=== PATIENT | female | born 1940 | race Caucasian/White ===

== ENCOUNTER → 2016-09-14 | Outpatient (CLI) | payer MEDICARE, OTHER | END | disposition home or self-care (01) | LOC: GMAB 19:45 | PROVIDERS: ATTEND Family Medicine | DX: D64.9 Anemia, unspecified (principal); E53.8 Deficiency of other specified B group vitamins ==

== ENCOUNTER → 2016-11-03 | Outpatient (CLI) | payer MEDICARE, OTHER ==
--- NOTE | 2016-11-03 14:55 | MAM ---
History: Well woman exam. Date of exam: 11/03/2016 Services provided: Bilateral full field digital screening mammography. CAD, the images were reviewed with R2 computer aided detection. FINDINGS: Glandular tissue is scattered glandular contour. Comparison with 2014 study. Stable glandular distribution. No dominant mass or architectural distortion. Benign vascular calcifications. IMPRESSION: Benign exam Recommendation: Routine annual mammography BIRAD CATEGORY: 2 BENIGN Electronically signed by: Radha Nunn MD 11/03/2016 2:54 PM CDT
== END ==
LOC: MAMMO 10:59
PROVIDERS: ATTEND Family Medicine
DX: Z12.31 Encounter for screening mammogram for malignant neoplasm of breast (principal)

== ENCOUNTER → 2017-06-12 | Outpatient (CLI) | payer MEDICARE, OTHER ==
--- NOTE | 2017-06-13 15:34 | MRI ---
EXAM DESCRIPTION: Lumbar Spine w/o Contrast CLINICAL HISTORY: 76 years, Female, POSTLAMINECTOMY SYNDROME COMPARISON: CT January 08, 2015 TECHNIQUE: Multiplanar multi sequence images of the lumbar spine were obtained without gadolinium contrast. FINDINGS: Metallic artifact limits the posterior elements in the lower lumbar spine. Metallic artifact also limits evaluation of the lumbosacral junction, with pedicle screws likely in the L5 and S1 bodies better seen on recent CT. An interbody spacer device is present at what will be labeled the L5-S1 level for the purposes of this exam. The designated T12-L1 disc is present on axial T2 series 501 image 23. There is grade 1 or grade 2 anterolisthesis at L4-5, stable from the previous CT. Vertebral body height and alignment are otherwise well-maintained. No bone marrow edema. The conus lies posterior to the L1-2 disc,. The cauda equina is only partially visualized, and there is some clumping of the nerve roots in the posterior thecal sac which can be seen with arachnoiditis. the paraspinal and visualized retroperitoneal soft tissues are unremarkable. At T12-L1, there is no disc bulging or facet joint degeneration. At L1-2, there is disc desiccation without significant disc bulging. Mild bilateral facet joint degeneration is noted, but there is no central canal or neuroforaminal stenosis. At L2-3, there is disc desiccation without significant disc bulging or facet joint degeneration. At L3-4, there is disc desiccation with mild concentric disc bulging. The facet joints are not well visualized due to metallic artifact, but there is no central canal or neuroforaminal stenosis. At L4-5, there is grade 1 or grade 2 anterolisthesis as detailed above. Evaluation of the intervertebral disc and facet joints is significantly limited by metallic artifact. At L5-S1, postoperative changes are noted including a probable interbody spacer device. Metallic artifact limits visualization of the disc space, facet joints and central canal at this level. IMPRESSION: Postoperative changes at the lumbosacral junction with metallic artifact limiting evaluation of the lower lumbar spine including the lumbosacral junction. Please see body of report for detailed description of nomenclature used in this exam. Mild facet joint degeneration at L1-2, but no significant disc bulging, central canal or neuroforaminal stenosis at any visualized level. Limited visualization of the central canal and neural foramina at L4-5 and L5-S1. Clumping of the nerve roots in the posterior aspect of the thecal sac posterior to the L2 and L3 bodies which suggests the possibility of arachnoiditis. Electronically signed by: Aamir Ceballos MD 06/13/2017 3:33 PM [facility]
== END ==
LOC: MRI 13:00
PROVIDERS: ATTEND Anesthesiology Pain Medicine
DX: M96.1 Postlaminectomy syndrome, not elsewhere classified (principal); Z98.890 Other specified postprocedural states

== ENCOUNTER → 2017-07-26 | Outpatient (CLI) | payer MEDICARE, OTHER | END | disposition home or self-care (01) | LOC: GMAB 14:16 | PROVIDERS: ATTEND Family Medicine | DX: I10 Essential (primary) hypertension (principal) ==

== ENCOUNTER → 2017-08-04 | Outpatient (CLI) | payer MEDICARE, OTHER ==
--- NOTE | 2017-08-07 08:08 | RAD ---
EXAM DESCRIPTION: Foot,Left 3 Views CLINICAL HISTORY: 76 yearsFemale, FOOT PAIN COMPARISON: None. IMPRESSION: The bones are demineralized, which somewhat limits evaluation. There is no definite evidence for acute fracture or destructive osseous lesion. A moderate hallux valgus deformity of the first digit is demonstrated, with associated moderate changes of osteoarthritis in the first MTP joint. Moderate changes of osteoarthritis are also demonstrated throughout the first through fifth MTP joints. Scattered vascular calcifications. Small plantar calcaneal enthesophytes. Electronically signed by: Denzel Aldridge MD 08/07/2017 8:06 AM [facility]
== END | disposition home or self-care (01) ==
LOC: RAD 08:44
PROVIDERS: ATTEND Orthopaedic Surgery
DX: M79.672 Pain in left foot (principal)

== ENCOUNTER → 2017-10-04 | Outpatient (CLI) | payer MEDICARE, OTHER | LOC: GMAB 11:33 | PROVIDERS: ATTEND Family Medicine | DX: R06.02 Shortness of breath (principal) ==

== ENCOUNTER → 2017-10-12 | Outpatient (CLI) | payer MEDICARE, OTHER | LOC: RESP 10:51 | PROVIDERS: ATTEND Family Medicine | DX: R55 Syncope and collapse (principal) ==

== ENCOUNTER → 2017-10-26 | Outpatient (CLI) | payer MEDICARE, OTHER ==
--- NOTE | 2017-10-26 16:33 | MRI ---
EXAM DESCRIPTION: Thoracic Spine w/o Contrast CLINICAL HISTORY: SPONDYLOSIS, mid back pain COMPARISON: None Available. TECHNIQUE: MRI thoracic is performed according to our usual protocol. FINDINGS: Sagittal T2 images: Decreased disc signal intensity is consistent with disc desiccation and degeneration. Normal vertebral body height with no focal compression or bony destructive lesion. Normal T2 appearance of the thoracic spinal cord. No significant posterior discal abnormality or spinal stenosis. There are mild posterior annular bulges at multiple thoracic levels without cord contouring. Most severe disc degeneration is seen at T2-3 level. T9 vertebral hemangiomas are incidentally noted tip of the conus is behind L1. Advanced degenerative disc disease is seen in the cervical spine. Correlate with C-spine MRI findings if indicated. Sagittal T1 images: Benign marrow signal characteristics are noted. Normal T1 appearance of the thoracic spinal cord. Normal descending thoracic aorta with no prevertebral mass. Sagittal STIR images: No high signal intensity within the vertebral bodies or posterior elements to suggest marrow edema. No paraspinous fluid collection or cystic lesion. Axial images were obtained to evaluate the disc levels. Normal or minimally bulging posterior disc margins with no spinal stenosis or neural foraminal narrowing. No acute appearing disc herniation. Axial images through the cord appear normal. No posterior mediastinal mass. No paraspinous mass or abnormality of the paraspinous musculature. Posterior medial ribs appear intact. IMPRESSION: MRI of the thoracic spine is negative for acute vertebral body compression or spinal stenosis. Multilevel thoracic disc degeneration with mild posterior annular bulges but no acute appearing disc herniation. Severe degenerative disc disease of the cervical spine. See above. Electronically signed by: Jose Mendez MD 10/26/2017 4:32 PM CDT
== END ==
LOC: MRI 11:00
PROVIDERS: ATTEND Anesthesiology Pain Medicine
DX: M47.894 Other spondylosis, thoracic region (principal); M50.30 Other cervical disc degeneration, unspecified cervical region

== ENCOUNTER → 2017-11-29 | Outpatient (CLI) | payer MEDICARE, OTHER ==
--- NOTE | 2017-11-29 17:15 | MAM ---
EXAM DESCRIPTION: 3D Screening BILATERAL : Digital Mammography. CLINICAL HISTORY: 77 years Female SCREENING . No complaints. Remote family history of breast cancer. Number. Postmenopausal. Has taken HRT 5 or more years ago. Prior right breast biopsy. COMPARISON: 2-D digital screening bilateral study 11/03/2016. Report from prior examination also reviewed. TECHNIQUE: Bilateral CC and MLO projection full-field images, 3-D tomosynthesis digital mammographic technique. CAD not utilized. FINDINGS: The breast parenchymal density pattern is: Scattered areas of fibroglandular density. No skin thickening or nipple retraction bilateral vascular calcifications. Bilateral solitary microcalcifications. No focal, stellate mass or density, focal asymmetry , and no suspicious microcalcifications bilaterally. Stable mammograms compared to prior study, taking into account differences in mammographic technique IMPRESSION: BI-RADS CATEGORY: 2 - BENIGN FINDINGS. FOLLOW UP: Routine digital bilateral screening, one year interval from November 2017. Written communication explaining the IMPRESSION and follow-up, will be mailed to the patient and referring health care provider. According to the [employer], yearly mammograms are recommended starting at age 40 and continuing as long as a woman is in good health. Any breast change noted on a breast self-exam should be reported promptly to the patient's healthcare provider. Breast MRI is recommended for women with an approximately 20-25% or greater lifetime risk of breast cancer, including women with a strong family history of breast or ovarian cancer and women who have been treated for Hodgkin's disease. A negative mammographic report should not delay tissue diagnosis in patients with significant clinical history or physical findings. Extremely dense breast tissue limits the sensitivity of digital mammography. Electronically signed by: Nilo Ndiaye MD 11/29/2017 5:14 PM CDT
== END ==
LOC: MAMMO 13:30
PROVIDERS: ATTEND Family Medicine
DX: Z12.31 Encounter for screening mammogram for malignant neoplasm of breast (principal)

== ENCOUNTER → 2017-12-05 | Outpatient (CLI) | payer MEDICARE, OTHER | LOC: SL 20:00 | PROVIDERS: ATTEND Internal Medicine Pulmonary Disease | DX: G47.10 Hypersomnia, unspecified (principal); R06.83 Snoring ==

== ENCOUNTER → 2018-01-05 | Outpatient (CLI) | payer MEDICARE, OTHER ==
--- NOTE | 2018-01-05 12:52 | CT ---
EXAM DESCRIPTION: Abdoment/Pelvis w/o Contrast CLINICAL HISTORY: 77 years, Female, GENERALIZED ABD PAIN COMPARISON: None. TECHNIQUE: CT of the abdomen and pelvis is performed according to our non contrast protocol. FINDINGS: The lung bases are clear. Liver, spleen, and pancreas are unremarkable. Clips from previous cholecystectomy. The kidneys demonstrate diffuse cortical atrophy. No stone. No hydronephrosis or mass. Low midline ventral hernia containing fat is observed. There is no lymphadenopathy, inflammation, or free fluid observed. IMPRESSION: 1. Cortical atrophy of the kidneys 2. Low midline ventral hernia This exam was performed according to our departmental dose-optimization program, which includes automated exposure control, adjustment of the mA and/or kV according to patient size and/or use of iterative reconstruction technique. Electronically signed by: Phillip Welhs MD 01/05/2018 12:50 PM CDT
== END ==
LOC: GMAH 11:54
PROVIDERS: ATTEND Physician Assistant
DX: R10.84 Generalized abdominal pain (principal); K43.9 Ventral hernia without obstruction or gangrene

== ENCOUNTER → 2018-07-30 | Outpatient (CLI) | payer MEDICARE, OTHER | LOC: GMAE 10:55 | PROVIDERS: ATTEND Family Medicine | DX: R06.02 Shortness of breath (principal); I10 Essential (primary) hypertension ==

== ENCOUNTER → 2018-11-28 | Outpatient (CLI) | payer MEDICARE, OTHER | LOC: GMAE 14:30 | PROVIDERS: ATTEND Family Medicine | DX: M25.531 Pain in right wrist (principal) ==

== ENCOUNTER → 2019-02-13 | Outpatient (CLI) | payer MEDICARE, OTHER | LOC: GMAE 11:31 | PROVIDERS: ATTEND Family Medicine | DX: D64.9 Anemia, unspecified (principal); E53.8 Deficiency of other specified B group vitamins ==

== ENCOUNTER → 2019-05-15 | Outpatient (CLI) | payer MEDICARE, OTHER ==
--- NOTE | 2019-05-17 16:39 | MAM ---
EXAM DESCRIPTION: 3D Screening BILATERAL : Digital Mammography. CLINICAL HISTORY: 78 years Female ANNUAL SCREENING . No complaints. No personal or family history of breast cancer. Menarche age 10. Childbirth. Postmenopausal 55+ years. HRT 5 or more years ago. Benign right breast biopsy.. Lifetime risk of developing breast cancer (Tyrer-Cuzick model)(%): 2.3. COMPARISON: Bilateral screening digital breast tomosynthesis 11/29/2017 and 2-D digital screening bilateral mammography 03 November 2016. TECHNIQUE: Bilateral CC and MLO projection full-field images, digital tomosynthesis mammographic technique. Bilateral digital 2-D full-field MLO images. CAD not available for tomosynthesis or 2-D images. FINDINGS: The breast parenchymal density pattern is: Scattered areas of fibroglandular density. No skin thickening or nipple retraction. Bilateral vascular calcifications. Bilateral solitary microcalcifications. Skin mole anterior left breast. No new focal, stellate mass or density, focal asymmetry , and no suspicious microcalcifications bilaterally. Stable mammograms compared to prior study. IMPRESSION: Benign exam. BIRAD CATEGORY: 2 BENIGN FINDINGS. RECOMMENDATIONS: FOLLOW UP: Routine digital bilateral mammographic screening, one year interval from April 2019. Written communication explaining the IMPRESSION and follow-up, will be mailed to the patient and referring health care provider. According to the [employer], yearly mammograms are recommended starting at age 40 and continuing as long as a woman is in good health. Any breast change noted on a breast self-exam should be reported promptly to the patient's healthcare provider. Breast MRI is recommended for women with an approximately 20-25% or greater lifetime risk of breast cancer, including women with a strong family history of breast or ovarian cancer and women who have been treated for Hodgkin's disease. A negative mammographic report should not delay tissue diagnosis in patients with significant clinical history or physical findings. Extremely dense breast tissue limits the sensitivity of digital mammography. Electronically signed by: Nilo Ndiaye MD 05/17/2019 4:38 PM CDT
== END ==
LOC: MAMMO 14:00
PROVIDERS: ATTEND Family Medicine
DX: Z12.31 Encounter for screening mammogram for malignant neoplasm of breast (principal)

== ENCOUNTER 2019-05-29 17:29 | Emergency (ER) | payer MEDICARE, OTHER ==
[2019-05-29] MEDS ORDERED: ACETAMINOPHEN IV 1000MG 1,000 MG in PREMIX BOTTLE 1 BOTTLE IVPB ONE (18:54)
[2019-05-29] MEDS ORDERED: ACETAMINOPHEN IV 1000MG 100 ML ONE (19:19)
--- NOTE | 2019-05-29 19:35 | ED.PDOC ---
History of Present Illness - General Chief Complaint: Trauma Stated Complaint: fall Time Seen by Provider: 05/29/19 19:33 Source: patient, family Exam Limitations: no limitations - History of Present Illness Initial Comments: 78 yo who presents after a trip and fall in her kitchen three days ago, landing on "twisted on her side and back." Pt reports L hip pain, R lower rib pain, thoracic back pain. Pt has chronic lower back and neck pain, on morphine with pain management. Denies any changes in her chronic pain. Denies GODOY, change in vision, weakness, numbness, CP, SOB, abd pain, n/v/d, edema, extremity pain, urinary sx. Allergies/Adverse Reactions: Allergies NO KNOWN ALLERGY Allergy (Unverified 08/24/14 11:40) Home Medications: Ambulatory Orders Aspirin 325 mg PO DAILY 08/24/14 Ciprofloxacin-Ciprofloxacin Hc [Cipro Xr] 1 tab PO BID #20 tab 08/24/14 Fluticasone Prop 0.05% Nasal [Flonase Nasal Adair] 0 gm INH DAILY 08/24/14 Fluticasone/Salmeterol 100/50 [Advair 100/50 Diskus] 1 puff INH DAILY 08/24/14 Furosemide [Lasix] 40 mg PO DAILY 08/24/14 HYDROcodone 10MG/APAP 325MG [[place] 10/325] 1 ea PO DAILY 08/24/14 Hydroxyzine HCl 10 mg PO DAILY 08/24/14 Latanoprost 0.005% Ophth [Xalatan 0.005% Ophthalmic Drops] 0 ml OPHTH DAILY 08/24/14 Lisinopril 10 mg PO DAILY 08/24/14 Methocarbamol [Robaxin] 750 mg PO DAILY 08/24/14 Metoprolol Succinate [Toprol Xl] 100 mg PO DAILY 08/24/14 Morphine Sulfate [Morphine Sulfate ER] 30 mg PO DAILY 08/24/14 Wheeler-3 Fatty Acids [Fish Oil] 1,000 mg PO DAILY 08/24/14 Ondansetron [Zofran Odt] 4 mg PO Q6HRS PRN #15 tab 08/24/14 Pantoprazole Tablet [Protonix] 40 mg PO DAILY 08/24/14 Potassium 0 mg PO DAILY 08/24/14 traZODone HCL [Desyrel] 50 mg PO DAILY 08/24/14 Review of Systems - Review of Systems Constitutional: Denies: chills, fever EENTM: Denies: blurred vision, double vision Respiratory: Denies: cough, short of breath Cardiology: Denies: chest pain, palpitations Gastrointestinal/Abdominal: Denies: abdominal pain, diarrhea, nausea, vomiting Genitourinary: Denies: dysuria, frequency, hematuria Musculoskeletal: States: back pain, joint pain - L hip, neck pain - chronic, no change, other - R rib pain. Denies: muscle pain, muscle stiffness Skin: Denies: lesions, rash Neurological: Denies: headache, numbness, weakness Past Medical History (General) - Patient Medical History Hx Seizures: No Hx Stroke: No Hx Dementia: No Hx Asthma: No Hx of COPD: No Hx Cardiac Disorders: Yes - CABG Hx Congestive Heart Failure: Yes Hx Pacemaker: No Hx Hypertension: Yes Hx Thyroid Disease: No Hx Diabetes: No Hx Gastroesophageal Reflux: Yes Hx Renal Disease: No Hx Cancer: No Hx of HIV: No Hx Hepatitis C: No Hx MRSA: No Surgical History: appendectomy, cholecystectomy, coronary bypass surgery, tonsillectomy, Hysterectomy, other - Vaccination History Hx Influenza Vaccination: Yes Hx Pneumococcal Vaccination: Yes - 2017 - Social History Hx Tobacco Use: No Hx Alcohol Use: No Hx Substance Use: No Hx Substance Use Treatment: No Hx Depression: No Family Medical History - Family History Mother Family History: No Known Physical Exam - Physical Exam General Appearance: Alert, Comfortable, No apparent distress, Well Developed, Well Nourished Eye Exam: bilateral normal Ears, Nose, Throat: normal ENT inspection Neck: non-tender, full range of motion, supple, normal inspection Respiratory: lungs clear, normal breath sounds, no respiratory distress, no accessory muscle use, other - R lower rib TTP Cardiovascular/Chest: normal peripheral pulses, regular rate, rhythm, no edema, no gallop, no JVD, no murmur Peripheral Pulses: radial,right: 2+, radial,left: 2+ Gastrointestinal/Abdominal: non tender, soft, no organomegaly, no pulsatile mass Back Exam: normal inspection, no CVA tenderness, vertebral tenderness - Thoracic, minimal. Othewise no TTP noted otherwise. 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 Pt states she has pain medication at home to control her pain, she is ambulating well, comfortable with d/c home, will give IS prior to d/c. I explained that emergent conditions may arise and to return to the ER for new, worsening, or any persistent conditions. I've explained the importance of f/u for recheck. All questions and concerns addressed at this time. Pt understands and agrees with plan. Pt well appearing, NAD, is stable for discharge. Kaitlin Logan MD Emergency Medicine Physician Billing Number [id number] - Results/Orders Results/Orders: Laboratory Results - last 24 hr 05/29/19 05/29/19 05/29/19 19:15 19:15 19:30 WBC 7.2 RBC 3.69 L Hgb 11.7 L Hct 34.8 L MCV 94.5 MCH 31.9 H MCHC 33.7 RDW 15.1 H Plt Count 187 MPV 8.4 Absolute Neuts (auto) 4.40 Absolute Lymphs (auto) 1.90 Absolute Monos (auto) 0.60 Absolute Eos (auto) 0.30 Absolute Basos (auto) 0.10 Neutrophils % 60.4 Lymphocytes % 26.5 Monocytes % 7.9 Eosinophils % 4.4 Basophils % 0.8 Sodium 138 Potassium 4.0 Chloride 98 L Carbon Dioxide 27 Anion Gap 17.0 BUN 29 H Creatinine 1.35 H BUN/Creatinine Ratio 21.5 H Random Glucose 102 Serum Osmolality 281.7 Calcium 9.7 Total Bilirubin 0.8 AST 32 ALT 17 Alkaline Phosphatase 69 Serum Total Protein 7.6 Albumin 4.2 Globulin 3.4 Albumin/Globulin Ratio 1.2 Urine Color Yellow Urine Appearance Clear Urine pH 7.0 Ur Specific [place] 1.015 Urine Protein Negative Urine Glucose (UA) Negative Urine Ketones Negative Urine Blood Negative Urine Nitrite Negative Urine Bilirubin Negative Urine Urobilinogen 0.2 Ur Leukocyte Esterase Negative Urine RBC 0 Urine WBC 0 Ur Epithelial Cells [address] T spine: PROCEDURE: Thoracic Spine CLINICAL HISTORY: 78 years Female pain COMPARISON: MRI 10/26/2017. TECHNIQUE: Contiguous axial images obtained through the thoracic spine without IV contrast. Coronal and sagittal reformatted images obtained. This exam was performed according to our department optimization program which includes automated exposure control, adjustment of the mA and/or kv according to patient size and/or use of iterative reconstruction technique. FINDINGS: There is normal alignment in the thoracic spine. Epidural leads are in place with their tips at the level of T6-T7. There is a fracture extending through the T9 vertebral body with mild loss of height. Fractures extend from the anterior to the posterior cortex. This fracture appears new when compared to the prior MRI examination. Narrowing of the disc interspaces with marginal osteophytosis. There is a small amount of cortical irregularity along the superior endplate of T12 which is age indeterminate but could also be acute. IMPRESSION: Findings suggesting acute or subacute fracture involving the T9 vertebral body with mild loss of height Findings also suggesting minimal superior compression at T12 Epidural lead stimulators in place Mild degenerative change throughout the thoracic spine Electronically signed by: Zuleika Villarreal MD 05/29/2019 9:14 PM [facility] Left Hip XR: EXAM: XR Left Hip With Pelvis When Performed, 2 or 3 Views CLINICAL HISTORY: pain TECHNIQUE: Two or three views of the left hip with pelvis when performed. COMPARISON: No relevant prior studies available. FINDINGS: Limitations: None. Bones/joints: There is mild posterior acetabular spurring. Postoperative changes with hardware lumbosacral spine. No acute fracture. No dislocation. Soft tissues: Unremarkable. IMPRESSION: No acute findings in the left hip. Electronically signed by: Yuliet Palacios MD 05/29/2019 9:09 PM [facility] Right Rib XR: EXAM: XR Right Ribs, 2 Views CLINICAL HISTORY: pain TECHNIQUE: Frontal and oblique views of the right ribs. COMPARISON: No relevant prior studies available. FINDINGS: Limitations: None. Lungs: Unremarkable as visualized. No consolidation. Pleural space: Unremarkable. No pneumothorax. Bones/joints: Age- indeterminate anterior fifth, sixth and seventh rib fractures present. Tubes, li jessica and devices: Dorsal column stimulator. Multiple mediastinal surgical clips and sternotomy wires present. IMPRESSION: Age-indeterminate anterior fifth, sixth and seventh rib fractures present. Electronically signed by: Yuliet Palacios MD 05/29/2019 9:14 PM [facility] Vital Signs - 24 hr 05/29/19 05/29/19 05/29/19 18:05 19:00 21:00 Temperature 99.5 F Pulse Rate [ 62 68 68 left brachial] Respiratory 18 20 18 Rate Blood Pressure 158/72 151/57 147/54 [left brachial] O2 Sat by Pulse 95 94 L 92 L Oximetry 05/29/19 05/29/19 05/29/19 22:00 23:00 23:20 Temperature 97.9 F Pulse Rate [ 60 60 58 L left brachial] Respiratory 18 16 16 Rate Blood Pressure 143/80 143/80 157/99 [left brachial] O2 Sat by Pulse 94 L 94 L 96 Oximetry Departure - Departure Clinical Impression: Fall Qualifiers: Encounter type: initial encounter Qualified Code(s): W19.XXXA - Unspecified fall, initial encounter Thoracic compression fracture Qualifiers: Encounter type: initial encounter Thoracic vertebra fracture level: unspecified thoracic vertebra Qualified Code(s): S22.000A - Wedge compression fracture of unspecified thoracic vertebra, initial encounter for closed fracture Rib fractures Qualifiers: Encounter type: initial encounter Rib fracture type: multiple ribs Fracture type: closed Laterality: right Qualified Code(s): S22.41XA - Multiple fractures of ribs, right side, initial encounter for closed fracture Time of Disposition: 23:03 Disposition: Discharge to Home or Self Care Health Concerns: Condition: stable Departure Forms: ED Discharge - Pt. Copy, Patient Portal Self Enrollment Instructions: DI for Trauma, Rib Fracture (DC), Vertebral Compression Fracture (DC) Referrals: JOSIE DOMINGUEZ MD [Primary Care Provider] - 1-2 Days Home Medications: Ambulatory Orders Aspirin 325 mg PO DAILY 08/24/14 Ciprofloxacin-Ciprofloxacin Hc [Cipro Xr] 1 tab PO BID #20 tab 08/24/14 Fluticasone Prop 0.05% Nasal [Flonase Nasal Adair] 0 gm INH DAILY 08/24/14 Fluticasone/Salmeterol 100/50 [Advair 100/50 Diskus] 1 puff INH DAILY 08/24/14 Furosemide [Lasix] 40 mg PO DAILY 08/24/14 HYDROcodone 10MG/APAP 325MG [[place] 10/325] 1 ea PO DAILY 08/24/14 Hydroxyzine HCl 10 mg PO DAILY 08/24/14 Latanoprost 0.005% Ophth [Xalatan 0.005% Ophthalmic Drops] 0 ml OPHTH DAILY 08/24/14 Lisinopril 10 mg PO DAILY 08/24/14 Methocarbamol [Robaxin] 750 mg PO DAILY 08/24/14 Metoprolol Succinate [Toprol Xl] 100 mg PO DAILY 08/24/14 Morphine Sulfate [Morphine Sulfate ER] 30 mg PO DAILY 08/24/14 Wheeler-3 Fatty Acids [Fish Oil] 1,000 mg PO DAILY 08/24/14 Ondansetron [Zofran Odt] 4 mg PO Q6HRS PRN #15 tab 08/24/14 Pantoprazole Tablet [Protonix] 40 mg PO DAILY 08/24/14 Potassium 0 mg PO DAILY 08/24/14 traZODone HCL [Desyrel] 50 mg PO DAILY 08/24/14 Additional Instructions: Follow up: [facility] As needed, if symptoms worsen
--- NOTE | 2019-05-29 21:10 | RAD ---
EXAM: XR Left Hip With Pelvis When Performed, 2 or 3 Views CLINICAL HISTORY: pain TECHNIQUE: Two or three views of the left hip with pelvis when performed. COMPARISON: No relevant prior studies available. FINDINGS: Limitations: None. Bones/joints: There is mild posterior acetabular spurring. Postoperative changes with hardware lumbosacral spine. No acute fracture. No dislocation. Soft tissues: Unremarkable. IMPRESSION: No acute findings in the left hip. Electronically signed by: Yuliet Palacios MD 05/29/2019 9:09 PM [facility]
--- NOTE | 2019-05-29 21:15 | RAD ---
EXAM: XR Right Ribs, 2 Views CLINICAL HISTORY: pain TECHNIQUE: Frontal and oblique views of the right ribs. COMPARISON: No relevant prior studies available. FINDINGS: Limitations: None. Lungs: Unremarkable as visualized. No consolidation. Pleural space: Unremarkable. No pneumothorax. Bones/joints: Age-indeterminate anterior fifth, sixth and seventh rib fractures present. Tubes, lines and devices: Dorsal column stimulator. Multiple mediastinal surgical clips and sternotomy wires present. IMPRESSION: Age-indeterminate anterior fifth, sixth and seventh rib fractures present. Electronically signed by: Yuliet Palacios MD 05/29/2019 9:14 PM [facility]
--- NOTE | 2019-05-29 21:16 | CT ---
PROCEDURE: Thoracic Spine CLINICAL HISTORY: 78 years Female pain COMPARISON: MRI 10/26/2017. TECHNIQUE: Contiguous axial images obtained through the thoracic spine without IV contrast. Coronal and sagittal reformatted images obtained. This exam was performed according to our department optimization program which includes automated exposure control, adjustment of the mA and/or kv according to patient size and/or use of iterative reconstruction technique. FINDINGS: There is normal alignment in the thoracic spine. Epidural leads are in place with their tips at the level of T6-T7. There is a fracture extending through the T9 vertebral body with mild loss of height. Fractures extend from the anterior to the posterior cortex. This fracture appears new when compared to the prior MRI examination. Narrowing of the disc interspaces with marginal osteophytosis. There is a small amount of cortical irregularity along the superior endplate of T12 which is age indeterminate but could also be acute. IMPRESSION: Findings suggesting acute or subacute fracture involving the T9 vertebral body with mild loss of height Findings also suggesting minimal superior compression at T12 Epidural lead stimulators in place Mild degenerative change throughout the thoracic spine Electronically signed by: Zuleika Villarreal MD 05/29/2019 9:14 PM [facility]
[2019-05-29 23:26] VITALS: BP 157/99; TEMP 97.9; O2SAT 96
== END 2019-05-29 23:20 | disposition home or self-care (01) ==
LOC: ER 17:29
DX: S22.41XA Multiple fractures of ribs, right side, initial encounter for closed fracture (principal); S22.070A Wedge compression fracture of T9-T10 vertebra, initial encounter for closed fracture; M25.552 Pain in left hip; M54.2 Cervicalgia; G89.29 Other chronic pain; I51.9 Heart disease, unspecified; I50.9 Heart failure, unspecified; I11.0 Hypertensive heart disease with heart failure; K21.9 Gastro-esophageal reflux disease without esophagitis; Z95.1 Presence of aortocoronary bypass graft; Z79.899 Other long term (current) drug therapy; Z79.82 Long term (current) use of aspirin; Z79.891 Long term (current) use of opiate analgesic; M54.5 Low back pain; W01.0XXA Fall on same level from slipping, tripping and stumbling without subsequent striking against object, initial encounter; Y92.000 Kitchen of unspecified non-institutional (private) residence as the place of occurrence of the external cause

== ENCOUNTER 2019-06-08 17:07 | Emergency (ER) | payer MEDICARE, OTHER ==
--- NOTE | 2019-06-08 17:23 | ED.PDOC ---
History of Present Illness - General Chief Complaint: Trauma Stated Complaint: L chest wall/flank discomfort Time Seen by Provider: 06/08/19 17:20 Source: patient Exam Limitations: no limitations - History of Present Illness Initial Comments: 78 yo F who presents for L rib pain s/p fall this am. Pt states that this morning she bent down to get a sock and when she stood up she lost her balance and fell into the bathtub landing on her L lower side ribs, pain worse with deep inspiration/movement/touching the area. She has chronic lower back pain and neck pain, on morphine with pain management, denies any change in her chronic pain. Pt took a morphine after the fall however had not had relief in sx. Denies any new neck or back pain, GODOY, change in vision, head trauma, LOC, syncope, dizziness, weakness, numbness, CP, SOB, abd pain, n/v/d, edema, extremity pain, urinary sx. Pt is on asa daily, no other anticoagulants. Allergies/Adverse Reactions: Allergies NO KNOWN ALLERGY Allergy (Unverified 08/24/14 11:40) Home Medications: Ambulatory Orders Aspirin 325 mg PO DAILY 08/24/14 Ciprofloxacin-Ciprofloxacin Hc [Cipro Xr] 1 tab PO BID #20 tab 08/24/14 Fluticasone Prop 0.05% Nasal [Flonase Nasal [place]] 0 gm INH DAILY 08/24/14 Fluticasone/Salmeterol 100/50 [Advair 100/50 Diskus] 1 puff INH DAILY 08/24/14 Furosemide [Lasix] 40 mg PO DAILY 08/24/14 HYDROcodone 10MG/APAP 325MG [[place] 10/325] 1 ea PO DAILY 08/24/14 Hydroxyzine HCl [Hydroxyzine Hydrochloride] 10 mg PO DAILY 08/24/14 Latanoprost 0.005% Ophth [Xalatan 0.005% Ophthalmic Drops] 0 ml OPHTH DAILY 08/24/14 Lisinopril 10 mg PO DAILY 08/24/14 Methocarbamol [Robaxin] 750 mg PO DAILY 08/24/14 Metoprolol Succinate [Toprol Xl] 100 mg PO DAILY 08/24/14 Morphine Sulfate [Morphine Sulfate ER] 30 mg PO DAILY 08/24/14 [place]-3 Fatty Acids [Fish Oil] 1,000 mg PO DAILY 08/24/14 Ondansetron [Zofran Odt] 4 mg PO Q6HRS PRN #15 tab 08/24/14 Pantoprazole Tablet [Protonix] 40 mg PO DAILY 08/24/14 Potassium 0 mg PO DAILY 08/24/14 traZODone HCL [Desyrel] 50 mg PO DAILY 08/24/14 Review of Systems - Review of Systems Constitutional: Denies: chills, fever EENTM: Denies: blurred vision, double vision Respiratory: Denies: cough, short of breath Cardiology: Denies: chest pain, edema, palpitations, syncope Gastrointestinal/Abdominal: Denies: abdominal pain, diarrhea, nausea, vomiting Genitourinary: Denies: dysuria, frequency, hematuria Musculoskeletal: States: back pain - chronic, no change, neck pain - chronic, no change, other - L rib pain. Denies: joint pain, muscle pain Skin: Denies: change in color, rash Neurological: Denies: headache, numbness, weakness Past Medical History (General) - Patient Medical History Hx Seizures: No Hx Stroke: No Hx Dementia: No Hx Asthma: No Hx of COPD: No Hx Cardiac Disorders: Yes - CABG Hx Congestive Heart Failure: Yes Hx Pacemaker: No Hx Hypertension: Yes Hx Thyroid Disease: No Hx Diabetes: No Hx Gastroesophageal Reflux: Yes Hx Renal Disease: No Hx Cancer: No Hx of HIV: No Hx Hepatitis C: No Hx MRSA: No - Vaccination History Hx Influenza Vaccination: Yes Hx Pneumococcal Vaccination: Yes - 2017 - Social History Hx Tobacco Use: No Hx Alcohol Use: No Hx Substance Use: No Hx Substance Use Treatment: No Hx Depression: No Family Medical History - Family History Mother Family History: No Known Physical Exam - Physical Exam General Appearance: Alert, No apparent distress, Well Developed, Well Nourished Eye Exam: bilateral normal Ears, Nose, Throat: normal ENT inspection Neck: non-tender, full range of motion, supple, normal inspection Respiratory: lungs clear, normal breath sounds, no respiratory distress, no accessory muscle use, other - L lower side rib TTP, ecchymosis present Cardiovascular/Chest: normal peripheral pulses, regular rate, rhythm, no edema, no gallop, no JVD, no murmur Peripheral Pulses: radial,right: 2+, radial,left: 2+ Gastrointestinal/Abdominal: non tender, soft, no pulsatile mass Back Exam: normal inspection, no CVA tenderness, no vertebral tenderness Extremity: normal range of motion, non-tender, normal inspection, no pedal edema, normal capillary refill 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 Pt has morphine po and IS at home from previous visit, states she has been using it except for today. I explained that emergent conditions may arise and to return to the ER for new, worsening, or any persistent conditions. I've explained the importance of f/u for recheck. All questions and concerns addressed at this time. Pt understands and agrees with plan. Pt well appearing, NAD, is stable for discharge. Kaitlin Logan MD Emergency Medicine Physician Billing Number [id number] - Results/Orders Results/Orders: L rib: EXAM: Chest,2 Views (accession [id number]), Ribs,Left 3 Views (accession [id number]) CLINICAL INDICATION: Patient fell, pain COMPARISON: There is no previous study for comparison. FINDINGS: 2 views of the chest reveal that the heart size is normal. Post-CABG surgical changes are noted. There is mild atelectasis in both lung bases. The lungs are otherwise clear. There is no pneumothorax. 3 views of the left ribs reveal no fractures or bone lesions. IMPRESSION: 1. No evidence of a left rib fracture. 2. Minimal bibasilar atelectasis in the lungs. Electronically signed by: Vicente Arellano MD 06/08/2019 6:12 PM [facility] CXR: EXAM: Chest,2 Views (accession [id number]), Ribs,Left 3 Views (accession [id number]) CLINICAL INDICATION: Patient fell, pain COMPARISON: There is no previous study for comparison. FINDINGS: 2 views of the chest reveal that the heart size is normal. Post-CABG surgical changes are noted. There is mild atelectasis in both lung bases. The lungs are otherwise clear. There is no pneumothorax. 3 views of the left ribs reveal no fractures or bone lesions. IMPRESSION: 1. No evidence of a left rib fracture. 2. Minimal bibasilar atelectasis in the lungs. Electronically signed by: Vicente Arellano MD 06/08/2019 6:12 PM DIRECTOR [facility]M C[facility] Vital Signs - 24 hr 06/08/19 17:10 Temperature 97.9 F Pulse Rate [ 66 Left Radial] Respiratory 20 Rate Blood Pressure 170/72 [Right Arm] O2 Sat by Pulse 95 Oximetry Departure - Departure Clinical Impression: Contusion of rib on left side Qualifiers: Encounter type: initial encounter Qualified Code(s): S20.212A - Contusion of left front wall of thorax, initial encounter Fall Qualifiers: Encounter type: initial encounter Qualified Code(s): W19.XXXA - Unspecified fall, initial encounter Time of Disposition: 18:24 Disposition: Discharge to Home or Self Care Health Concerns: condition: stable Departure Forms: ED Discharge - Pt. Copy, Patient Portal Self Enrollment Instructions: DI for Trauma, Rib Fracture (DC) Referrals: JOSIE DOMINGUEZ MD [Primary Care Provider] - 1-5 Days Home Medications: Ambulatory Orders Aspirin 325 mg PO DAILY 08/24/14 Ciprofloxacin-Ciprofloxacin Hc [Cipro Xr] 1 tab PO BID #20 tab 08/24/14 Fluticasone Prop 0.05% Nasal [Flonase Nasal [place]] 0 gm INH DAILY 08/24/14 Fluticasone/Salmeterol 100/50 [Advair 100/50 Diskus] 1 puff INH DAILY 08/24/14 Furosemide [Lasix] 40 mg PO DAILY 08/24/14 HYDROcodone 10MG/APAP 325MG [[place] 10/325] 1 ea PO DAILY 08/24/14 Hydroxyzine HCl [Hydroxyzine Hydrochloride] 10 mg PO DAILY 08/24/14 Latanoprost 0.005% Ophth [Xalatan 0.005% Ophthalmic Drops] 0 ml OPHTH DAILY 08/24/14 Lisinopril 10 mg PO DAILY 08/24/14 Methocarbamol [Robaxin] 750 mg PO DAILY 08/24/14 Metoprolol Succinate [Toprol Xl] 100 mg PO DAILY 08/24/14 Morphine Sulfate [Morphine Sulfate ER] 30 mg PO DAILY 08/24/14 [place]-3 Fatty Acids [Fish Oil] 1,000 mg PO DAILY 08/24/14 Ondansetron [Zofran Odt] 4 mg PO Q6HRS PRN #15 tab 08/24/14 Pantoprazole Tablet [Protonix] 40 mg PO DAILY 08/24/14 Potassium 0 mg PO DAILY 08/24/14 traZODone HCL [Desyrel] 50 mg PO DAILY 08/24/14 Additional Instructions: Follow up: [facility] As needed, if symptoms worsen
[2019-06-08] MEDS ORDERED: KETOROLAC TROMETHAMINE INJ 30 MG/ML VIAL IM ONE (17:38)
--- NOTE | 2019-06-08 18:13 | RAD ---
EXAM: Chest,2 Views (accession [id number]), Ribs,Left 3 Views (accession [id number]) CLINICAL INDICATION: Patient fell, pain COMPARISON: There is no previous study for comparison. FINDINGS: 2 views of the chest reveal that the heart size is normal. Post-CABG surgical changes are noted. There is mild atelectasis in both lung bases. The lungs are otherwise clear. There is no pneumothorax. 3 views of the left ribs reveal no fractures or bone lesions. IMPRESSION: 1. No evidence of a left rib fracture. 2. Minimal bibasilar atelectasis in the lungs. Electronically signed by: Vicente Arellano MD 06/08/2019 6:12 PM [facility]
--- NOTE | 2019-06-08 18:13 | RAD ---
EXAM: Chest,2 Views (accession [id number]), Ribs,Left 3 Views (accession [id number]) CLINICAL INDICATION: Patient fell, pain COMPARISON: There is no previous study for comparison. FINDINGS: 2 views of the chest reveal that the heart size is normal. Post-CABG surgical changes are noted. There is mild atelectasis in both lung bases. The lungs are otherwise clear. There is no pneumothorax. 3 views of the left ribs reveal no fractures or bone lesions. IMPRESSION: 1. No evidence of a left rib fracture. 2. Minimal bibasilar atelectasis in the lungs. Electronically signed by: Vicente Arellano MD 06/08/2019 6:12 PM [facility]
[2019-06-08 18:58] VITALS: BP 136/70; TEMP 97.7; O2SAT 94
== END 2019-06-08 18:50 | disposition home or self-care (01) ==
LOC: ER 17:07
DX: S20.212A Contusion of left front wall of thorax, initial encounter (principal); I50.9 Heart failure, unspecified; I10 Essential (primary) hypertension; K21.9 Gastro-esophageal reflux disease without esophagitis; Z95.1 Presence of aortocoronary bypass graft; Z79.899 Other long term (current) drug therapy; Z79.82 Long term (current) use of aspirin; W18.2XXA Fall in (into) shower or empty bathtub, initial encounter; Y92.9 Unspecified place or not applicable
CPT/HCPCS: 71046; 71101; J1885

== ENCOUNTER 2019-06-11 15:02 | Observation (INO) | payer MEDICARE, OTHER ==
--- NOTE | 2019-06-11 15:14 | HP ---
SUPERVISING PHYSICIAN: Akash Farmer MD CHIEF COMPLAINT: Intractable pain. HISTORY OF PRESENT ILLNESS: This is an 78-year-old female patient who was seen in her primary care physician's office, Dr. Aaron Farmer, today. She has been to the Emergency Room on 06/08/19 and 05/29/19 each time after a fall at home. She has a longstanding history of vertigo and balance issues. She got gentamicin toxicity in 2004 and has had problems with her balance since then, but in the last few weeks, she has fallen more. She actually had some left rib pain, some difficulty urinating, shortness of breath and generalized weakness. She also complains of some left upper extremity pain that feels like it is stabbing at times. She also seems to have spasms in that area. Her x-rays at her Emergency Room visits were negative for any fracture, but has had to call her pain management doctor, Dr. Cool, in [place] several times to change her medications and does not seem to be able to get her pain under control. Dr. Farmer called me for a direct admission to the hospital to get her pain under control and to evaluate her left upper quadrant abdominal pain. She was placed in observation in the hospital. PAST MEDICAL HISTORY: 1. Congestive heart failure of unknown etiology with no current echocardiogram to review. 2. Coronary artery disease 3. Hypertension. 4. Myocardial infarction. 5. Chronic pain syndrome, mostly related to her back pain. 6. Lumbar disc disease. 7. 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 PAST SURGICAL HISTORY: 1. Right oophorectomy. 2. Appendectomy. 3. Coronary artery bypass graft. 4. Cholecystectomy. 5. Hysterectomy. 6. Tonsillectomy/adenoidectomy. 7. Bilateral cataracts. 8. Stent placed in both eyes due to glaucoma. OUTPATIENT MEDICATIONS: Per the EMR and awaiting verification. ALLERGIES: NO KNOWN DRUG ALLERGIES. 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 She denies any tobacco or illicit drug use. She does drink alcoholic beverage on a social basis only. REVIEW OF SYSTEMS: GENERAL: Negative for fever, chills or weight changes. HEENT: Negative for sinus symptoms, ear pain, vision changes or sore throat. RESPIRATORY: Positive for shortness of breath. Negative for wheezing, coughing. CARDIAC: Negative for chest pain, palpitations or tachycardia. GASTROINTESTINAL: As per history of present illness including left upper quadrant abdominal pain and nausea. Negative for diarrhea or vomiting. GENITOURINARY: Negative for hematuria, dysuria or polyuria. MUSCULOSKELETAL: Positive for back pain and left rib pain. INTEGUMENT: Positive for bruising. Negative for lesions or rashes. NEUROLOGIC: Positive for vertigo and dizziness. Negative for headache or seizures. PHYSICAL EXAMINATION: VITAL SIGNS: Temperature 98.1. Heart rate 59. Blood pressure 152/61. Respiratory rate 18. O2 saturation 94% on room air. GENERAL: This is an 78-year-old female patient who is lying in her hospital bed. She looks to be in moderate pain. HEENT: Normocephalic, atraumatic. Pupils are equal and reactive. Oropharynx is clear. NECK: Supple without mass. RESPIRATORY: Essentially clear to auscultation bilaterally although the patient does not take deep breaths. CHEST: There is equal rise and fall of the chest with inspiration and expiration. CARDIOVASCULAR: Regular rate and rhythm. GASTROINTESTINAL: Abdomen is soft, nondistended. She is diffusely tender in the left upper quadrant although there is no rebound tenderness or guarding. Bowel sounds are positive. SKIN: Warm and dry. NEUROLOGIC: Awake, alert and oriented times three. Cranial nerves II-XII are grossly intact. LABORATORY: WBC 7.1, hemoglobin 11.7, hematocrit 34.4. Electrolytes are basically within normal limits with BUN 25, creatinine 1.26. Liver enzymes are within normal limits. RADIOLOGY: CT abdomen shows 1) Small left pleural effusion. 2) Hiatal hernia. 3) Cholecystectomy with mid dilation of the biliary ductal system. 4) Hysterectomy. 5) Extensive back hardware with evidence of anterior subluxation on L4 and 5. 6) Large amount of stool throughout the right colon. 7) Small ventral hernia containing fat. All other labs and films have been reviewed via the EMR. IMPRESSION: 1. Intractable pain status post same level fall times 2. She has been to the Emergency Room times 2 in the last few weeks. 2. Vertigo and loss of balance that may have contributed to #1, secondary to gentamicin toxicity in 2004. This has been chronic since that time and she has frequent falls. 3. Constipation. 4. Coronary artery disease. 5. Hypertension. 6. Chronic pain syndrome. She sees a pain management doctor and takes hydrocodone and morphine. 7. Subluxation L4 and 5, unknown if new or due to these present falls. PLAN: The patient has been placed in observation. At this point, I will give her some Toradol times 5 doses as well as some morphine and Robaxin. Hopefully we can get her pain under control. She will need to be monitored closely including traffic superintendent due to her frequent falls and her medication. I have also given her 2 doses of Milk of Magnesia and we will monitor that. I have also given her MiraLAX and she will need to go home on as she may have some opioid induced constipation. I have also consulted physical therapy. She will have aggressive pulmonary hygiene to prevent pneumonia. She is on Lovenox for DVT prophylaxis as well as I will restart her home medications as soon as they are verified. I will also let Dr. Farmer know about the subluxation so that can be followed up as an outpatient. We will continue to monitor the patient closely and follow as needed. #[id number] [facility]
[2019-06-11] MEDS ORDERED: SODIUM CHLORIDE 0.9% (FLUSH) 10 ML SYG IV PRN (15:52)
[2019-06-11] MEDS ORDERED: ONDANSETRON INJ 4 MG/2 ML VIAL IV PRN (15:52)
[2019-06-11] MEDS ORDERED: IV SET AND CAP CHANGE INJ INJ SCH (16:00)
[2019-06-11] MEDS: MORPHINE SULFATE INJ 10 MG/ML VIAL IV PRN ×2 (16:52→21:03)
--- NOTE | 2019-06-11 17:41 | CT ---
EXAM DESCRIPTION: Abdomen/Pelvis w/Contrast CLINICAL HISTORY: 78 years Female, abd pain COMPARISON: 05 January 2018 TECHNIQUE: Transaxial images were obtained with intravenous contrast medium without oral contrast media. Sagittal and coronal reconstruction was performed.This exam was performed according to our departmental dose-optimization program, which includes automated exposure control, adjustment of the mA and/or kV according to patient size and/or use of iterative reconstruction technique. FINDINGS: A small left pleural effusion is observed. Minimal left basilar atelectasis is observed. A small hiatus hernia is seen. The liver and spleen are unremarkable. The gallbladder is been previously removed. Surgical clips are seen in the region of gallbladder fossa. The common duct is prominent which is a common finding post cholecystectomy. The pancreas is normal in appearance. No adrenal masses are detected. Imaging of the kidneys reveals no evidence of hydronephrosis mass or calcification. Calcific atherosclerotic changes observed in the abdominal aorta without evidence of aneurysmal dilatation. Imaging of the lower abdomen is degraded by metallic artifact from back hardware. No free fluid is observed. The patient is post hysterectomy. A persistent anterior subluxation of L4 on L5 is observed. No bowel abnormality is detected. There is large amount stool seen throughout the right colon. A ventral hernia is observed in the pelvis containing fat. IMPRESSION: 1. Small left pleural effusion. 2. Hiatus hernia. 3. Cholecystectomy with mild dilatation of the biliary ductal system. 4. Hysterectomy. 5. Extensive back hardware with evidence of anterior subluxation of L4 on L5. #6 a large amount of stool is observed throughout the right colon. 6. Small ventral hernia containing fat. Electronically signed by: Arsenio Washburn MD 06/11/2019 5:39 PM [facility]
[2019-06-11] MEDS: MAGNESIUM HYDROXIDE 30 ML UD PO SCH ×2 (18:01→21:01)
[2019-06-11] MEDS ORDERED: KETOROLAC TROMETHAMINE INJ 30 MG/ML VIAL IV ONE (18:30)
[2019-06-11] MEDS: ENOXAPARIN SODIUM 40 MG/0.4 ML SYG SUBCU SCH (21:01)
[2019-06-11] MEDS: METHOCARBAMOL 750 MG TAB PO SCH (21:01)
[2019-06-11] MEDS: SODIUM CHLORIDE 0.9% (FLUSH) 10 ML SYG IV SCH (21:02)
[2019-06-11] MEDS ORDERED: METOPROLOL SUCCINATE XL 50 MG TAB PO ONE (23:43)
[2019-06-11] MEDS ORDERED: LISINOPRIL 10 MG TAB PO ONE (23:47)
[2019-06-11] MEDS ORDERED: traZODone HCL 50 MG TAB PO ONE (23:56)
[2019-06-11] MEDS ORDERED: METOPROLOL SUCCINATE XL 100 MG TAB PO ONE (23:58)
[2019-06-12] MEDS: KETOROLAC TROMETHAMINE INJ 30 MG/ML VIAL IV SCH ×4 (00:09→17:40)
[2019-06-12] MEDS: MORPHINE SULFATE INJ 10 MG/ML VIAL IV PRN (07:09)
[2019-06-12] MEDS: POLYETHYLENE GLYCOL 3350 17 GM PCKT PO SCH (08:43)
[2019-06-12] MEDS: METHOCARBAMOL 750 MG TAB PO SCH ×4 (08:43→20:35)
[2019-06-12] MEDS: SODIUM CHLORIDE 0.9% (FLUSH) 10 ML SYG IV SCH ×2 (08:43→20:36)
[2019-06-12] MEDS: METOPROLOL SUCCINATE XL 100 MG TAB PO SCH (10:18)
[2019-06-12] MEDS ORDERED: KETOROLAC TROMETHAMINE INJ 30 MG/ML VIAL IV ONE (10:21)
--- NOTE | 2019-06-12 10:55 | PN ---
SUPERVISING PHYSICIAN: Akash Farmer MD DATE: 06/12/19 SUBJECTIVE: The patient is lying in bed. She continues to have complaints of back pain, but she did say it was improved with the hospital bed because she could raise her back and it helped her to get comfortable. She still has quite a bit of pain. Her home narcotics are morphine and hydrocodone, which she feels that the Toradol is helping a lot too. OBJECTIVE: VITAL SIGNS: Temperature 97.1. Heart rate 57. Blood pressure 148/64. Respiratory rate 16. O2 saturation 100% on room air. RESPIRATORY: Essentially clear to auscultation bilaterally. CARDIAC: Regular rate and rhythm. GASTROINTESTINAL: Abdomen is soft, nondistended, nontender. Bowel sounds are positive. NEUROLOGIC: Awake, alert and oriented times three. LABORATORY: Chemistry is basically within normal limits. Creatinine is slightly improved to 1.17. Urinalysis is negative. All other labs and films have been reviewed via the EMR. ASSESSMENT: 1. Intractable pain status post same level fall times 2. She has been to the Emergency Room times 2 in the last few weeks. 2. Vertigo and loss of balance that may have contributed to #1, secondary to gentamicin toxicity in 2004. This has been chronic since that time and she has frequent falls. 3. Constipation. 4. Coronary artery disease. 5. Hypertension. 6. Chronic pain syndrome. She sees a pain management doctor and takes hydrocodone and morphine. 7. Subluxation L4 and 5, unknown if new or due to these present falls. PLAN: We will continue present supportive care. Hopefully her pain will be under better control and we can discharge her tomorrow. Her home medications show morphine as well as [place] from her pain management physicians in [place], Dr. Cool. I have ordered a BMP in the morning and if her creatinine continues to remain stable, she may need 3 to 4 days of oral Toradol in addition to her home medications. She will need a close followup with Dr. Farmer on Monday. I will get that appointment. I am also going to try to get her a hospital bed for home to assist with her back pain. We will continue to monitor the patient closely and follow as needed. #[id number] [facility]
[2019-06-12] MEDS ORDERED: MORPHINE ER 15 MG TAB ONE (16:08)
[2019-06-12] MEDS: traMADol HCL 50 MG TAB PO PRN (16:23)
[2019-06-12] MEDS: MORPHINE ER 30 MG TAB PO SCH (16:26)
[2019-06-12] MEDS ORDERED: HYDROcodone 7.5MG/APAP 325MG 1 EA TAB PO PRN (16:51)
[2019-06-12] MEDS: ENOXAPARIN SODIUM 40 MG/0.4 ML SYG SUBCU SCH (20:35)
[2019-06-12] MEDS: LISINOPRIL 10 MG TAB PO SCH (20:35)
[2019-06-12] MEDS ORDERED: traZODone HCL 50 MG TAB PO SCH ×2 (21:00)
[2019-06-12] MEDS ORDERED: CETIRIZINE HCL 10 MG TAB PO SCH (21:00)
[2019-06-12] MEDS ORDERED: traZODone HCL 100 MG, traZODone HCL 50 MG PO ONE ×2 (23:50)
[2019-06-13] MEDS: MORPHINE ER 30 MG TAB PO SCH (04:48)
[2019-06-13] MEDS: POLYETHYLENE GLYCOL 3350 17 GM PCKT PO SCH (08:03)
[2019-06-13] MEDS: LISINOPRIL 10 MG TAB PO SCH (08:04)
[2019-06-13] MEDS: METHOCARBAMOL 750 MG TAB PO SCH (08:04)
[2019-06-13] MEDS: METOPROLOL SUCCINATE XL 100 MG TAB PO SCH (08:04)
[2019-06-13] MEDS: SODIUM CHLORIDE 0.9% (FLUSH) 10 ML SYG IV SCH (08:05)
[2019-06-13] MEDS ORDERED: POTASSIUM CHLORIDE 20 MEQ TAB PO SCH (09:00)
[2019-06-13] MEDS ORDERED: ATORVASTATIN 20 MG TAB PO SCH (09:00)
[2019-06-13] MEDS ORDERED: ASPIRIN (CHEWABLE) 81 MG TAB PO SCH (09:00)
[2019-06-13] MEDS ORDERED: FUROSEMIDE 40 MG TAB PO SCH (09:00)
[2019-06-13] MEDS: traMADol HCL 50 MG TAB PO PRN (10:28)
[2019-06-13] MEDS ORDERED: KETOROLAC TROMETHAMINE INJ 30 MG/ML VIAL IM ONE (10:50)
[2019-06-13 11:05] VITALS: BP 129/76; TEMP 97.8; O2SAT 94
[2019-06-13] MEDS ORDERED: KETOROLAC TROMETHAMINE INJ 30 MG/ML VIAL ONE (11:11)
--- NOTE | 2019-06-14 08:01 | DS ---
SUPERVISING PHYSICIAN: Akash Farmer MD ADMISSION DIAGNOSIS: 1. Intractable pain status post same level fall times 2. She has been to the Emergency Room times 2 in the last few weeks. 2. Vertigo and loss of balance that may have contributed to #1, secondary to gentamicin toxicity in 2004. This has been chronic since that time and she has frequent falls. 3. Constipation. 4. Coronary artery disease. 5. Hypertension. 6. Chronic pain syndrome. She sees a pain management doctor and takes hydrocodone and morphine. 7. Subluxation L4 and 5, unknown if new or due to these present falls. DISCHARGE DIAGNOSIS: 1. Intractable pain status post same level fall times 2 events with no loss of consciousness with the patient showing good response to Toradol and now having good control of her pain. 2. Vertigo and loss of balance that may have contributed to #1, secondary to gentamicin toxicity in 2004. This has been chronic since that time and she has frequent falls. 3. Constipation with the patient having good response to laxatives prior to discharge. 4. Coronary artery disease. 5. Hypertension. 6. Chronic pain syndrome. She sees a pain management doctor and takes hydrocodone and morphine. 7. Subluxation L4 and 5, unknown if new or due to these present falls. REASON FOR HOSPITALIZATION: This is an 78-year-old female patient who was seen in her primary care physician's office, Dr. Aaron Farmer, today. She has been to the Emergency Room on 06/08/19 and 05/29/19 each time after a fall at home. She has a longstanding history of vertigo and balance issues. She got gentamicin toxicity in 2004 and has had problems with her balance since then, but in the last few weeks, she has fallen more. She actually had some left rib pain, some difficulty urinating, shortness of breath and generalized weakness. She also complains of some left upper extremity pain that feels like it is stabbing at times. She also seems to have spasms in that area. Her x-rays at her Emergency Room visits were negative for any fracture, but has had to call her pain management doctor, Dr. Cool, in [place] several times to change her medications and does not seem to be able to get her pain under control. Dr. Farmer called me for a direct admission to the hospital to get her pain under control and to evaluate her left upper quadrant abdominal pain. She was placed in observation in the hospital. LABORATORY: CBC on admission showed white count 7,100, hemoglobin 11.7, hematocrit 34.4, platelet count 284,000, differential without a left shift. Chemistries were stable both on admission and discharge with normal electrolytes. BUN was a little high at 24, creatinine 1.17 down from 1.26 on admission. Liver functions all within normal limits. Urinalysis showed trace leukocyte esterase, otherwise within normal limits. RADIOLOGY: Abdominopelvic CT with contrast on admission showed small pleural effusions, hiatal hernia, cholecystectomy with some mild dilation of the biliary duct system, noted hysterectomy and extensive hardware with evidence of anterior subluxation of L4 and L5, large amount of stool throughout the right colon and a small ventral hernia containing fat. Please see that report for full details. HOSPITAL COURSE: Ms. Sung was admitted on 06/11/19 and given several doses of Toradol, which did result in improvement over her pain. She also got some Milk of Magnesia and MiraLAX to help resolve her constipation. She did show good response to treatment and was felt to be clinically stable enough to continue with outpatient management. PLAN: Ms. Sung was discharged on06/13/[address] Farmer. She is to call his office on Monday after discharge. She was to resume her home medications as instructed. Diet at discharge was regular diet as tolerated, activities as tolerated and new medications on discharge included Toradol 10 mg q.6h. p.r.n. as needed, #20, no refills. All other medications on discharge were resumed. CONDITION ON DISCHARGE: Stable and improved. DISPOSITION: The patient was discharged to the care of family members. #[id number] [facility]
== END 2019-06-13 11:30 | disposition home or self-care (01) ==
LOC: MS 15:02 → INTOOBSV 15:02
PROVIDERS: ADMIT Nurse Practitioner Acute Care; ATTEND Nurse Practitioner Family
DX: K59.00 Constipation, unspecified (principal); R10.12 Left upper quadrant pain; R07.81 Pleurodynia; M79.602 Pain in left arm; R42 Dizziness and giddiness; R29.6 Repeated falls; I25.10 Atherosclerotic heart disease of native coronary artery without angina pectoris; I11.0 Hypertensive heart disease with heart failure; G89.4 Chronic pain syndrome; S33.140A Subluxation of L4/L5 lumbar vertebra, initial encounter; I50.9 Heart failure, unspecified; M51.36 Other intervertebral disc degeneration, lumbar region; I25.2 Old myocardial infarction; K44.9 Diaphragmatic hernia without obstruction or gangrene; K43.9 Ventral hernia without obstruction or gangrene; J90 Pleural effusion, not elsewhere classified; W18.30XA Fall on same level, unspecified, initial encounter; Y92.009 Unspecified place in unspecified non-institutional (private) residence as the place of occurrence of the external cause; Z91.81 History of falling; Z79.891 Long term (current) use of opiate analgesic; Z79.899 Other long term (current) drug therapy; Z95.1 Presence of aortocoronary bypass graft; Z90.49 Acquired absence of other specified parts of digestive tract; Z90.710 Acquired absence of both cervix and uterus
CPT/HCPCS: 96374; 96375; 96376 ×2; 96372 ×4; J1885 ×8; J2270 ×3; J1650 ×2; 80053 ×2; 36415 ×3; 81001; 85025; 83735; 71046; 71101; 74177; 94760 ×3; 97116; G8978; G8979; 97162; 99284

== ENCOUNTER → 2019-06-17 | Outpatient (CLI) | payer MEDICARE, OTHER ==
--- NOTE | 2019-06-17 09:36 | RAD ---
EXAM DESCRIPTION: Wrist,Left 3 Views CLINICAL HISTORY: 78 years Female, UNSPEC. FRACTURE OF THE LOWER END OF LEFT RADIUS COMPARISON: None available. FINDINGS: The visualized bones are poorly mineralized. Comminuted and impacted fracture of the distal radius. Fracture of the ulnar styloid process. Associated soft tissue swelling is noted. Severe osteoarthritis of the first carpometacarpal joint. IMPRESSION: Comminuted and impacted fracture of the distal radius and fracture of the ulnar styloid process. Electronically signed by: Ivonne Mahmood MD 06/17/2019 9:35 AM [facility]
== END ==
LOC: RAD 08:46
PROVIDERS: ATTEND Orthopaedic Surgery
DX: S52.502D Unspecified fracture of the lower end of left radius, subsequent encounter for closed fracture with routine healing (principal); S52.615D Nondisplaced fracture of left ulna styloid process, subsequent encounter for closed fracture with routine healing

== ENCOUNTER → 2019-07-01 | Outpatient (CLI) | payer MEDICARE, OTHER ==
--- NOTE | 2019-07-01 10:31 | RAD ---
EXAM DESCRIPTION: Wrist,Left 3 Views CLINICAL HISTORY: 78 years Female, FRACTURE OF DISTAL END OF RADIUS LEFT COMPARISON: June 17, 2019 FINDINGS: 3 views of the left wrist again show a slightly displaced, impacted and nonunited distal left radial fracture with a nondisplaced ulnar styloid fracture, all unchanged from June 17, 2019. No new fracture or malalignment. Moderately advanced degenerative changes in the lateral aspect of the left wrist including joint space narrowing and productive change, worse at the first CMC joint. Chondrocalcinosis involving the triangular fibrocartilage complex, also stable. IMPRESSION: Distal left radial and ulnar styloid fractures as detailed above, unchanged from June 17, 2019. No new abnormality. Electronically signed by: Aamir Ceballos MD 07/01/2019 10:29 AM [facility]
== END ==
LOC: RAD 09:23
PROVIDERS: ATTEND Orthopaedic Surgery
DX: S52.502D Unspecified fracture of the lower end of left radius, subsequent encounter for closed fracture with routine healing (principal); S52.615D Nondisplaced fracture of left ulna styloid process, subsequent encounter for closed fracture with routine healing

== ENCOUNTER → 2019-07-29 | Outpatient (CLI) | payer MEDICARE, OTHER ==
--- NOTE | 2019-07-29 11:50 | RAD ---
EXAM DESCRIPTION: Wrist,Left 2 Views CLINICAL HISTORY: FRACTURE OF DISTAL END OF RADIUS LEFT COMPARISON: 01 July 2019 TECHNIQUE: AP and lateral left FINDINGS: Fractures of the distal radius and ulna are observed unchanged from the previous exam. Callus formation is observed at the fracture sites. Calcification of the triangular fibrocartilage is also observed. Degenerative changes are observed in the metacarpal carpal articulation of the first digit. IMPRESSION: Healing fractures of the distal radius and ulna are observed. Degenerative changes are observed as noted above. Electronically signed by: Arsenio Washburn MD 07/29/2019 11:[address] [facility]
== END ==
LOC: RAD 10:13
PROVIDERS: ATTEND Orthopaedic Surgery
DX: S52.502D Unspecified fracture of the lower end of left radius, subsequent encounter for closed fracture with routine healing (principal); S52.602D Unspecified fracture of lower end of left ulna, subsequent encounter for closed fracture with routine healing; M19.032 Primary osteoarthritis, left wrist

== ENCOUNTER → 2019-08-15 | Outpatient (CLI) | payer MEDICARE, OTHER | LOC: GMAE 10:37 | PROVIDERS: ATTEND Family Medicine | DX: D50.9 Iron deficiency anemia, unspecified (principal) ==

== ENCOUNTER → 2019-09-26 | Outpatient (CLI) | payer MEDICARE, OTHER | DX: Z01.818 Encounter for other preprocedural examination (principal) ==

== ENCOUNTER 2019-11-12 05:37 | Day surgery (SDC) | payer MEDICARE, OTHER ==
[2019-11-12] MEDS ORDERED: diphenhydrAMINE HCL 50 MG/ML VIAL IV ONE (05:38)
[2019-11-12] MEDS ORDERED: PROPOFOL 200 MG/20 ML VIAL IV ONE (05:38)
[2019-11-12] MEDS ORDERED: LIDOCAINE 1% 10 ML VIAL INJ ONE ×2 (05:38→06:32)
[2019-11-12] MEDS ORDERED: SODIUM CHL 0.9% 100ML MINI-BAG 100 ML IVPB ONE (06:18)
[2019-11-12] MEDS ORDERED: LACTATED RINGERS 1,000 ML ONE (06:19)
[2019-11-12] MEDS ORDERED: ceFAZolin SODIUM 1 GM VIAL ONE (06:19)
[2019-11-12] MEDS ORDERED: BUPIVACAINE 0.25% INJ 30 ML VIAL INJ ONE (06:32)
[2019-11-12] MEDS ORDERED: fentaNYL CITRATE INJ 50 MCG/ML 2 ML AMP ONE (08:12)
[2019-11-12] MEDS: ceFAZolin SODIUM 1 GM VIAL ONE ×2 (08:40→08:50)
[2019-11-12] MEDS: VANCOMYCIN HCL INJ 1,000 MG VIAL IVPB ONE ×2 (08:40→08:50)
[2019-11-12] MEDS ORDERED: HYDROcodone 5MG/APAP 325MG 1 EA TAB ONE (09:19)
[2019-11-12 10:05] VITALS: O2SAT 94
[2019-11-12 10:13] VITALS: BP 159/57; TEMP 97.9
--- NOTE | 2019-11-13 08:02 | OP ---
DATE OF PROCEDURE: 11/12/19 PREOPERATIVE DIAGNOSIS: 1. Left carpal tunnel syndrome. POSTOPERATIVE DIAGNOSIS: 1. Left carpal tunnel syndrome. PROCEDURE: 1. Left carpal tunnel release. SURGEON: Jose Luis Hart MD. FLY RAISER LOCKSTITCH: Nilo Arroyo CST, SA-C. ANESTHESIA: Local with sedation. COMPLICATIONS: None. FINDINGS: Narrowing of the median nerve across the carpal tunnel. INDICATION: Ms. Sung has a history of pain and symptoms consistent with carpal tunnel syndrome. She does have a history of arthritis as well as a distal radius fracture on the affected side. We talked about her options and the fact that this should relieve some of her discomfort and numbness, however, she does have arthritis which may cause continued pain, albeit hopefully at a lower degree. After discussing the risks, benefits and alternatives to operative therapy, the patient has given informed consent for carpal tunnel release. PROCEDURE: The patient was brought to the Operating Room and placed in the supine position. Sedation was administered and local anesthetic was injected into the operative area under sterile conditions. After the injection of anesthetic, the arm was sterilely prepped and draped. A longitudinal incision was made directly overlying the transverse carpal ligament and blunt dissection was carried down to the ligament. The transverse carpal ligament was sharply transected along its length and a [place] elevator was used to ensure complete release of the ligament. Once release had been confirmed, the wound was thoroughly irrigated and the wound was closed with Nylon suture. A sterile dressing was placed and the patient was taken to the Day Surgery Unit. POSTOPERATIVE PLAN: The patient has been encouraged to do range of motion of the digits and will followup with us in two days. #[id number] [facility]
== END 2019-11-12 10:00 | disposition home or self-care (01) ==
LOC: AMB 05:37
PROVIDERS: ATTEND Orthopaedic Surgery
DX: G56.02 Carpal tunnel syndrome, left upper limb (principal); I10 Essential (primary) hypertension; I34.1 Nonrheumatic mitral (valve) prolapse; I25.2 Old myocardial infarction; K21.9 Gastro-esophageal reflux disease without esophagitis; Z95.2 Presence of prosthetic heart valve; Z95.1 Presence of aortocoronary bypass graft; Z79.899 Other long term (current) drug therapy
CPT/HCPCS: 01810; 64721; 80307; 87070; J0690; J1200; J3010; J3370; J3490; J7050; J7120

== ENCOUNTER 2019-11-25 19:59 | Emergency (ER) | payer MEDICARE, OTHER ==
[2019-11-25] MEDS ORDERED: LIDOCAINE 1% 10 ML VIAL INJ ONE (20:10)
--- NOTE | 2019-11-25 20:15 | ED.PDOC ---
History of Present Illness - General Chief Complaint: Laceration Stated Complaint: laceration to head after fall Time Seen by Provider: 11/25/19 20:14 Source: patient - History of Present Illness Initial Comments: 79 yo female with PMH of CHF, ?Aortic stenosis who presents with cc of fall and head injury which occurred 2 hours ago at home. Reports hx of vertigo and frequent falls. States she never knows when it will hit and she will fall rapidly before she can catch herself. States was walking in her home and suddenly was losing balance, tried to grab onto the treadmill but fell backwards and struck the back right portion of her head against the treadmill on her way to the ground. Event witnessed by family. Pt denies any LOC. Reports minimal pain to the back of her head w/o radiation, well-controlled with home pain meds, worse with palpation. Reports laceration to the scalp with constant slow bleeding. Her daughter was worried she may need stitches so she sent her to the ED. Reports chronic neck pain but unchanged from usual. Unsure of date of last tetanus imm. Denies any vision/hearing changes, weakness, numbness, chest pain, dyspnea, abd pain, cough, fever, pelvic/hip pain, leg swelling. PCP is Dr. Farmer. Takes ASA daily but no other blood thinners. On chart review, echo from 05/2019 revealed EF of 35-40%, concentric LVH, and question of borderline aortic stenosis. Allergies/Adverse Reactions: Allergies NO KNOWN ALLERGY Allergy (Verified 06/12/19 06:15) Home Medications: Ambulatory Orders Fluticasone Prop 0.05% Nasal [Flonase Nasal [place]] 50 mg INH DAILY 08/24/14 Furosemide [Lasix] 40 mg PO DAILY 08/24/14 Lisinopril 20 mg PO BID 08/24/14 Metoprolol Succinate [Toprol Xl] 100 mg PO DAILY 08/24/14 Morphine Sulfate [Morphine Sulfate ER] 30 mg PO BID 08/24/14 traZODone HCL [Desyrel] 50 mg PO BEDTIME 08/24/14 Aspirin [Aspirin Childrens] 81 mg PO DAILY 06/11/19 Atorvastatin Calcium [Lipitor] 40 mg PO DAILY 06/11/19 Calcium Citrate-Vitamin D [Citracal + D3 Maximum 315-250 mg-Unit] 1 tab PO DAILY 06/11/19 Cetirizine HCl [Zyrtec] 10 mg PO BEDTIME 06/11/19 Coenzyme Q10 (Ubidecarenone) [Coq-10] 200 mg PO BID 06/11/19 Multiple Vitamins W/ Minerals [One Daily For Women] 1 tab PO DAILY 06/11/19 Potassium Chloride [K-Tab] 20 meq PO DAILY 06/11/19 Ketorolac Tromethamine [Toradol Tabs] 10 mg PO Q6HR PRN #20 tab 06/13/19 Zion-3 Fatty Acids [Fish Oil] 1 unit PO DAILY 11/08/19 Review of Systems - Review of Systems Review of Systems: 11/25/19 20:27 as per HPI All other Systems: Reviewed and Negative Past Medical History (General) - Patient Medical History Hx Seizures: No Hx Stroke: No Hx Dementia: No Hx Asthma: No Hx of COPD: No Hx Cardiac Disorders: Yes - CABG Hx Congestive Heart Failure: No Hx Pacemaker: No Hx Hypertension: Yes Hx Thyroid Disease: No Hx Diabetes: No Hx Gastroesophageal Reflux: Yes Hx Renal Disease: No Hx Cancer: No Hx of HIV: No Hx Hepatitis C: No Hx MRSA: No - Vaccination History Hx Influenza Vaccination: Yes Hx Pneumococcal Vaccination: Yes - 2018 - Social History Hx Tobacco Use: No Hx Alcohol Use: No Hx Substance Use: No Hx Substance Use Treatment: No Hx Depression: No Hx Physical Abuse: No Hx Emotional Abuse: No Family Medical History - Family History Mother Family History: No Known Father Hx Family Stroke: Yes Hx Cardiac Disease: Yes Hx Family Diabetes: Yes Physical Exam - Physical Exam General Appearance: Alert, Comfortable, No apparent distress Eye Exam: bilateral normal Ears, Nose, Throat: hearing grossly normal, normal ENT inspection, normal pharynx Neck: non-tender, full range of motion, supple, normal inspection, other - Right occipital scalp with approx 3 cm linear laceration through skin & subcut tissue, appears clean & hemostatic, mild swelling, mild ttp, no skull deformities Respiratory: chest non-tender, lungs clear, normal breath sounds, no respiratory distress, no accessory muscle use Cardiovascular/Chest: normal peripheral pulses, regular rate, rhythm, no edema, no gallop, no JVD, systolic murmur - 3/6 systolic murmur best heard at LUSB Peripheral Pulses: radial,right: 2+, radial,left: 2+ Gastrointestinal/Abdominal: non tender, soft, no organomegaly Back Exam: normal inspection, no CVA tenderness, no vertebral tenderness Extremity: normal range of motion, non-tender, normal inspection, no pedal edema, no calf tenderness, normal capillary refill, pelvis stable 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 No emergent injuries seem apparent -obtain CT head & c-spine, CXR, EKG, labwork, UA -will clean & repair scalp lac, ensure tetanus imm UTD 11/25/19 21:19 -CT head & c-spine w/o acute processes. Chronic findings noted. -Labwork largely unremarkable from chronic. Trop <0.02. -Discussed dx's of closed head injury and scalp laceration as well as continued home care. -Pt has remained stable with ED monitoring. Lac wound repaired with sutures w/o issue. Sutures out in 7-10 days. -dc home in good condition, return warnings discussed at length Thierry Garza MD Billing #[id number] 11/25/19 20:14 Telemetry .ONCE EKG Assessment ONCE Pulse Oximetry Assessment DAILY 11/25/19 20:15 EKG STAT 11/25/19 20:22 Cervical Spine [CT] Stat 11/26/19 09:00 Pulse Ox Daily Laboratory Results - last 24 hr 11/25/19 11/25/19 11/25/19 20:32 20:32 20:32 WBC 6.0 RBC 3.57 L Hgb 11.8 L Hct 34.0 L MCV 95.0 MCH 33.1 H MCHC 34.9 RDW 13.8 Plt Count 198 MPV 8.1 Absolute Neuts (auto) 3.10 Absolute Lymphs (auto) 2.00 Absolute Monos (auto) 0.50 Absolute Eos (auto) 0.30 Absolute Basos (auto) 0.10 Neutrophils % 52.3 Lymphocytes % 33.1 Monocytes % 8.0 Eosinophils % 5.5 H Basophils % 1.1 PT 10.2 INR 1.03 PTT (SP) 23.6 Sodium 136 Potassium 3.8 Chloride 101 Carbon Dioxide 26 Anion Gap 12.8 BUN 34 H Creatinine 1.32 H BUN/Creatinine Ratio 25.8 H Random Glucose 132 H Serum Osmolality 281.4 Calcium 9.4 Total Bilirubin 0.5 AST 27 ALT 18 Alkaline Phosphatase 53 Troponin I B-Natriuretic Peptide 568.0 H* Serum Total Protein 7.0 Albumin 3.9 Globulin 3.1 Albumin/Globulin Ratio 1.3 Urine Color Urine Appearance Urine pH Ur Specific [place] Urine Protein Urine Glucose (UA) Urine Ketones Urine Blood Urine Nitrite Urine Bilirubin Urine Urobilinogen Ur Leukocyte Esterase Urine RBC Urine WBC Ur Epithelial Cells Urine Bacteria 11/25/19 11/25/19 20:32 20:47 WBC RBC Hgb Hct MCV MCH MCHC RDW Plt Count MPV Absolute Neuts (auto) Absolute Lymphs (auto) Absolute Monos (auto) Absolute Eos (auto) Absolute Basos (auto) Neutrophils % Lymphocytes % Monocytes % Eosinophils % Basophils % PT INR PTT (SP) Sodium Potassium Chloride Carbon Dioxide Anion Gap BUN Creatinine BUN/Creatinine Ratio Random Glucose Serum Osmolality Calcium Total Bilirubin AST ALT Alkaline Phosphatase Troponin I < 0.02 B-Natriuretic Peptide Serum Total Protein Albumin Globulin Albumin/Globulin Ratio Urine Color Yellow Urine Appearance Clear Urine pH 7.0 Ur Specific [place] 1.020 Urine Protein Negative Urine Glucose (UA) Negative Urine Ketones Negative Urine Blood Negative Urine Nitrite Negative Urine Bilirubin Negative Urine Urobilinogen 0.2 Ur Leukocyte Esterase Negative Urine RBC 0-1 Urine WBC 0-1 Ur Epithelial Cells 0 Urine Bacteria 0 - EKG/XRAY/CT EKG: Sinus - NSR (abundant artifact presence given spinal cord stimulator), HR 65, no apparent ST elevs or q waves, nonspecific T wave inversions in anterolateral and inferior leads, left axis deviation, intervals appear normal, no prior EKG for comparison XRAY: chest - no acute processes per my read Procedures - Laceration/Wound Repair Right Posterior Occipital Wound Length (cm): 3 Wound's Depth, Shape: linear Wound Explored: clean Betadine Prep?: No - Copious Hibiclens irrigation Anesthesia: Lidocaine w/ Epi Volume Anesthetic (cc's): 4 Wound Repaired With: sutures Suture Size/Type: 3:0, prolene Number of Sutures: 3 Layer Closure?: No Departure - Departure Clinical Impression: Fall from ground level Occipital scalp laceration Qualifiers: Encounter type: initial encounter Qualified Code(s): S01.01XA - Laceration without foreign body of scalp, initial encounter Closed head injury Qualifiers: Encounter type: initial encounter Qualified Code(s): S09.90XA - Unspecified injury of head, initial encounter Time of Disposition: 21:23 Disposition: Discharge to Home or Self Care Condition: Fair Departure Forms: ED Discharge - Pt. Copy, Patient Portal Self Enrollment Instructions: DI for Laceration Repair of the Scalp Diet: resume usual diet Activity: increase activity as tolerated Referrals: JOSIE FARMER MD [Primary Care Provider] - 1-2 Weeks Home Medications: Ambulatory Orders Fluticasone Prop 0.05% Nasal [Flonase Nasal [place]] 50 mg INH DAILY 08/24/14 Furosemide [Lasix] 40 mg PO DAILY 08/24/14 Lisinopril 20 mg PO BID 08/24/14 Metoprolol Succinate [Toprol Xl] 100 mg PO DAILY 08/24/14 Morphine Sulfate [Morphine Sulfate ER] 30 mg PO BID 08/24/14 traZODone HCL [Desyrel] 50 mg PO BEDTIME 08/24/14 Aspirin [Aspirin Childrens] 81 mg PO DAILY 06/11/19 Atorvastatin Calcium [Lipitor] 40 mg PO DAILY 06/11/19 Calcium Citrate-Vitamin D [Citracal + D3 Maximum 315-250 mg-Unit] 1 tab PO DAILY 06/11/19 Cetirizine HCl [Zyrtec] 10 mg PO BEDTIME 06/11/19 Coenzyme Q10 (Ubidecarenone) [Coq-10] 200 mg PO BID 06/11/19 Multiple Vitamins W/ Minerals [One Daily For Women] 1 tab PO DAILY 06/11/19 Potassium Chloride [K-Tab] 20 meq PO DAILY 06/11/19 Ketorolac Tromethamine [Toradol Tabs] 10 mg PO Q6HR PRN #20 tab 06/13/19 Zion-3 Fatty Acids [Fish Oil] 1 unit PO DAILY 11/08/19 Additional Instructions: Keep the wound clean and dry for next 24 hours then wash gently with soap & water twice daily and pat dry then apply topical Neosporin. Sutures out in 7-10 days (12/01-12/04). 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 Return if the wound becomes warm, red, swollen, or drains pus which may indicate infection. Return if you have rapidly worsening or severe headache, confusion, weakness, numbness, vision changes, trouble walking, etc...
[2019-11-25] MEDS ORDERED: LIDOCAINE 1% W/ EPINEPHRINE 20 ML VIAL INJ ONE (20:22)
[2019-11-25 20:27] VITALS: O2SAT 96
--- NOTE | 2019-11-25 20:40 | RAD ---
EXAM DESCRIPTION: Chest,1 View CLINICAL HISTORY: 79 years Female GLF, closed head injury COMPARISON: 06/08/2019 FINDINGS: The cardiomediastinal silhouette appears unremarkable. No consolidating infiltrates or pleural effusions. No pneumothorax. Calcified aorta. Epidural leads in stable position. IMPRESSION: No acute abnormality is identified. Electronically signed by: Zuleika Villarreal MD 11/25/2019 8:39 PM CDT
[2019-11-25] MEDS ORDERED: CHLORHEXIDINE GLUCONATE 4 % 15 ML UD TOP ONE (20:44)
--- NOTE | 2019-11-25 21:17 | CT ---
EXAM DESCRIPTION: Head CLINICAL HISTORY: 79 years Female fall with closed head injury, no LOC COMPARISON: MRI brain dated May 16, 2016 Technique: Contiguous axial images of the brain were obtained without the administration of intravenous contrast.This exam was performed according to our departmental dose-optimization program which includes use of Automated Exposure Control, adjustment of the mA and/or kV according to patient size and/or use of iterative reconstruction technique. DLP: 859 mGy*cm FINDINGS: Brain: No acute intracranial hemorrhage. No extra-axial collection. No mass effect or herniation. Small rounded hypodensities in the right basal ganglia and subinsular region. Unchanged prominence of the sulci and cisterns. Confluent periventricular and subcortical white matter hypodensity is noted. Intracranial vascular calcifications Ventricles: No hydrocephalus. Globes and orbits: No acute abnormality. Prior cataract surgery. Bones: No acute osseous finding Paranasal sinuses: Paranasal sinuses are clear. Mastoid air cells: Well pneumatized. Soft tissues: Mild frontal scalp swelling IMPRESSION: No acute intracranial hemorrhage, hydrocephalus or herniation. Mild frontal scalp swelling. Cerebral volume loss, chronic small vessel ischemic changes and right subinsular hypodensity. If persistent clinical concern for acute ischemia, consider MRI brain without contrast for further evaluation. Electronically signed by: Terry Whitfield DO 11/25/2019 9:16 PM CDT
[2019-11-25] MEDS ORDERED: TETANUS,DIPHTHERIA,PERTUSSIS 1 EA SYG IM ONE (21:19)
--- NOTE | 2019-11-25 21:26 | CT ---
PROCEDURE: CT Cervical Spine CLINICAL HISTORY: 79 years Female fall, closed head injury, no LOC, chronic neck pain TECHNIQUE: Contiguous axial CT images obtained through the cervical spine without IV contrast. Coronal and sagittal reformatted images also provided. This CT exam was performed according to our departmental dose-optimization program, which includes one or more of the following dose reduction techniques: automated exposure control, adjustment of the mA and/or kV according to patient size, and/or use of iterative reconstruction technique. COMPARISON: No prior exams provided for comparison. FINDINGS: There is no acute cervical fracture. Straightening of the normal cervical lordosis without spondylolisthesis. There is no moderate chronic arthrosis at the atlantodental interval with scattered multilevel degenerative disc disease, uncovertebral arthrosis, and facet arthrosis. The right C2-C3 facet joint is fused. No aggressive osseous lesion. Vascular calcifications without prevertebral or paraspinal soft tissue swelling. The lung apices are clear. At C3-C4, there is flattening of the ventral aspect of the thecal sac with severe right and mild to moderate left neural foraminal stenosis. At C4-C5, there is flattening of the ventral aspect of the thecal sac with moderate right and severe left neural foraminal stenosis. At C5-C6, there is mild central canal stenosis with moderate right and severe left neural foraminal stenosis. At C6-C7, there is moderate bilateral neural foraminal stenosis. At C7-T1, there is mild bilateral neural foraminal stenosis. IMPRESSION: No acute cervical spine injury. Chronic degenerative changes resulting in central canal and neural foraminal stenoses as described. Electronically signed by: Rosie You MD 11/25/2019 9:24 PM CDT
[2019-11-25 21:40] VITALS: BP 131/71; TEMP 97.6
== END 2019-11-25 21:39 | disposition home or self-care (01) ==
LOC: ER 19:59
DX: S01.01XA Laceration without foreign body of scalp, initial encounter (principal); S09.90XA Unspecified injury of head, initial encounter; I10 Essential (primary) hypertension; Z79.899 Other long term (current) drug therapy; Z79.82 Long term (current) use of aspirin; W19.XXXA Unspecified fall, initial encounter; Y92.009 Unspecified place in unspecified non-institutional (private) residence as the place of occurrence of the external cause

== ENCOUNTER 2020-01-31 17:21 | Emergency (ER) | payer MEDICARE, OTHER ==
[2020-01-31] MEDS ORDERED: SODIUM CHLORIDE 0.9% (FLUSH) 10 ML SYG IV PRN (17:34)
--- NOTE | 2020-01-31 17:34 | ED.PDOC ---
History of Present Illness - General Time Seen by Provider: 01/31/20 17:31 Source: patient - History of Present Illness Initial Comments: 79-year-old female with past medical history of hypertension, CHF, stenosis, vertigo, frequent falls who presents with chief complaint of fall with right groin pain, which occurred at home just prior to arrival. Patient reports she was in the kitchen bending over to put a bag of sugar up when she lost balance and fell over onto her right side, injuring her right groin, right hip, and right elbow regions. She reports chiefly pain to the right inner inguinal region, which she reports at rest is minimal but becomes sharp and severe 10/10 whenever she tries to bear weight on the right leg or walk. The pain does not radiate. Denies any bruising, swelling, deformity. She has not taken any medications for relief. She also reports she had a minor blunt head injury on the right side when she fell but denies any loss of consciousness or headache or neck pain. Denies weakness, numbness, vision changes, chest pain, dyspnea, abdominal pain, nausea/vomiting, leg swelling. Allergies/Adverse Reactions: Allergies NO KNOWN ALLERGY Allergy (Verified 06/12/19 06:15) Home Medications: Ambulatory Orders Fluticasone Prop 0.05% Nasal [Flonase Nasal [place]] 50 mg INH DAILY 08/24/14 Furosemide [Lasix] 40 mg PO DAILY 08/24/14 Lisinopril 20 mg PO BID 08/24/14 Metoprolol Succinate [Toprol Xl] 100 mg PO DAILY 08/24/14 Morphine Sulfate [Morphine Sulfate ER] 30 mg PO BID 08/24/14 traZODone HCL [Desyrel] 50 mg PO BEDTIME 08/24/14 Aspirin [Aspirin Childrens] 81 mg PO DAILY 06/11/19 Atorvastatin Calcium [Lipitor] 40 mg PO DAILY 06/11/19 Calcium Citrate-Vitamin D [Citracal + D3 Maximum 315-250 mg-Unit] 1 tab PO DAILY 06/11/19 Cetirizine HCl [Zyrtec] 10 mg PO BEDTIME 06/11/19 Coenzyme Q10 (Ubidecarenone) [Coq-10] 200 mg PO BID 06/11/19 Multiple Vitamins W/ Minerals [One Daily For Women] 1 tab PO DAILY 06/11/19 Potassium Chloride [K-Tab] 20 meq PO DAILY 06/11/19 Ketorolac Tromethamine [Toradol Tabs] 10 mg PO Q6HR PRN #20 tab 06/13/19 [place]-3 Fatty Acids [Fish Oil] 1 unit PO DAILY 11/08/19 Review of Systems - Review of Systems Review of Systems: 01/31/20 17:50 As per HPI All other Systems: Reviewed and Negative Past Medical History (General) - Patient Medical History Hx Seizures: No Hx Stroke: No Hx Dementia: No Hx Asthma: No Hx of COPD: No Hx Cardiac Disorders: Yes - CABG Hx Congestive Heart Failure: No Hx Pacemaker: No Hx Hypertension: Yes Hx Thyroid Disease: No Hx Diabetes: No Hx Gastroesophageal Reflux: Yes Hx Renal Disease: No Hx Cancer: No Hx of HIV: No Hx Hepatitis C: No Hx MRSA: No - Vaccination History Hx Tetanus, Diphtheria Vaccination: No Hx Influenza Vaccination: Yes Hx Pneumococcal Vaccination: Yes - 2018 - Social History Hx Tobacco Use: No Hx Alcohol Use: No Hx Substance Use: No Hx Substance Use Treatment: No Hx Depression: No Hx Physical Abuse: No Hx Emotional Abuse: No Family Medical History - Family History Mother Family History: No Known Father Hx Family Stroke: Yes Hx Cardiac Disease: Yes Hx Family Diabetes: Yes Physical Exam - Physical Exam General Appearance: Alert, Comfortable, No apparent distress Head Injury: no evidence of injury Eye Exam: bilateral normal ENT Exam: no evidence of ENT injury, no dental injury Neck Exam: non-tender, full range of motion, normal alignment, normal inspection Cardiovascular/Respiratory: regular rate, rhythm, no M/R/G, normal peripheral pulses, no JVD, normal breath sounds, no respiratory distress Gastrointestinal/Abdominal: non tender, soft, no organomegaly Back Exam: normal inspection, no CVA tenderness, no vertebral tenderness Extremity Exam: no pedal edema, pelvis stable, other - The examination of the right lower extremity is normal on inspection without bruising, swelling, deformity. Patient reports pain and discomfort to the right medial inguinal region with range of motion of the right hip. There is no tenderness to palpation of the right hip or right inguinal region. Moderate bruising to the posterior lateral right shoulder with minimal tenderness to palpation without any swelling or deformity. 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 as tested, no motor/sensory deficits, alert, normal mood/affect, oriented x 3 Skin Exam: warm/dry, other - Bruising to right elbow as above - [place] Coma Score Best Eye Response ([place]): (4) open spontaneously Best Verbal Response ([place]): (5) oriented Best Motor Response ([place]): (6) obeys commands Progress - Progress Progress: 01/31/20 17:52 Ground-level fall -Etiology appears mechanical, consider also organic/iatrogenic causes since patient takes chronic pain medications and has frequent falls -Consider injuries: Pelvic fracture, right hip fracture, right elbow fracture, contusion injuries. Given the mechanism and clinical history, it appears highly unlikely that there is any serious intracranial or C-spine injury. -We will obtain blood work, cardiac work-up, UA, x-ray imaging of the pelvis, right hip, right elbow, and chest -We will give [place] 10 p.o. for pain 01/31/20 18:46 -Patient remained stable, pain well controlled -X-ray imaging of the pelvis reveals comminuted fracture of the pubic body and steer superior pubic rami. Age-indeterminate fracture of the inferior pubic rami is also present. X-ray of the chest reveals interstitial infiltrates concerning for edema versus possible lower respiratory viral infection. There is also a new mass projecting over the right hemidiaphragm compared to the previous chest x-ray per my read. Radiology read mentions concern for possible eventration and recommends CT imaging of the chest. -Labs largely unremarkable. -I spoke with Dr. Hart, orthopedic surgery, who recommends CT imaging of the pelvis for better delineation of the pelvic fractures and also to ensure no involvement of the posterior ring. CT orders of the chest, abdomen, pelvis placed. Given abnormal chest x-ray will also add respiratory panel. Plan for likely admission to the hospital for further monitoring, pain control, and to begin rehab. 01/31/20 21:19 -CT scans now back. CT of the abdomen pelvis reveals fracture of the right obturator ring with associated approximately 12 x 6 x 5 cm right pelvic sidewall extraperitoneal hematoma. There is also associated leftward deviation of the bladder. Verbal read was given by the reading radiologist to me. He reported that it did not appear that there is any injury or perforation to the bladder itself but follow-up CT cystogram could be considered. Her UA is pretty unremarkable with 0 RBCs. He does recommend interventional radiology/endovascular consultation for the hematoma. -Otherwise CT of the chest does demonstrate age-indeterminate compression fractures of T9 and T12 bony vertebral bodies. I suspect that these are chronic in nature as patient is without acute middle/upper back pain and has no midline tenderness to palpation on exam. Patient was also noted to have mildly displaced fractures of the left ninth, 10th, and 11th ribs posteriorly. I also suspect that these are likely chronic in nature as she does not complain of pain in these areas at this time. She does have history of frequent falls so I believe that these are old injuries that are manifesting on the CT scans. -Patient placed in pelvic binder with bedsheets. Tetanus imm is up to date. Will also give a dose of Ancef for prophylaxis in case of need for surgery. -I discussed the patient with Dr. Shine, orthopedic surgery, at [facility] who states that they were unable to manage this patient at their facility given the associated hematoma. Thus I spoke with Dr. Chan at [facility] ED who accepted the patient for ED to ED transfer. Patient is stable to go via ground EMS. Administrative approval by Dr. Rodriguez, the on-call trauma surgeon. Thierry Garza MD Billing #[id number] 01/31/20 17:34 Telemetry .ONCE 01/31/20 17:45 EKG STAT 01/31/20 18:49 IV:Start .ONCE 01/31/20 19:53 RESPIRATORY PANEL 2 Stat 01/31/20 20:21 URINE CULTURE W/COLONY COUNT Stat 02/01/20 09:00 Pulse Ox Daily Laboratory Results - last 24 hr 01/31/20 01/31/20 01/31/20 19:53 19:53 20:21 WBC 12.2 H RBC 3.73 L Hgb 11.7 L Hct 35.1 L MCV 94.2 MCH 31.5 H MCHC 33.4 RDW 13.0 Plt Count 201 MPV 8.5 Absolute Neuts (auto) 9.50 H Absolute Lymphs (auto) 2.00 Absolute Monos (auto) 0.50 Absolute Eos (auto) 0.10 Absolute Basos (auto) 0.10 Neutrophils % 77.8 Lymphocytes % 16.2 L Monocytes % 4.3 Eosinophils % 1.1 Basophils % 0.6 Sodium 135 Potassium 4.6 Chloride 99 L Carbon Dioxide 24 Anion Gap 16.6 BUN 55 H Creatinine 1.57 H BUN/Creatinine Ratio 35.0 H Random Glucose 113 H Serum Osmolality 286.0 Calcium 9.3 B-Natriuretic Peptide 486.0 H* Urine Color Yellow Urine Appearance Clear Urine pH 6.5 Ur Specific [place] 1.020 Urine Protein Negative Urine Glucose (UA) Negative Urine Ketones Negative Urine Blood Negative Urine Nitrite Negative Urine Bilirubin Negative Urine Urobilinogen 0.2 Ur Leukocyte Esterase Small H Urine RBC 0 Urine WBC 1-3 Ur Epithelial Cells 0-1 Urine Bacteria Rare - EKG/XRAY/CT EKG: Sinus - Normal sinus rhythm, heart rate 60, no ST elevations or Q waves noted, nonspecific T wave inversions noted in anterior and inferior leads, axis normal, intervals normal, appears largely unchanged from 11/25/2019 EKG. Departure - Departure Clinical Impression: Pelvic hematoma in female Pelvic fracture Qualifiers: Encounter type: initial encounter Pelvic bone location: multiple parts Fracture type: closed Fracture alignment: without disruption of pelvic ring Qualified Code(s): S32.82XA - Multiple fractures of pelvis without disruption of pelvic ring, initial encounter for closed fracture Time of Disposition: 21:32 Disposition: Transfer to Hospital Condition: Fair Referrals: JOSIE DOMINGUEZ MD [Primary Care Provider] - 1-2 Weeks Home Medications: Ambulatory Orders Fluticasone Prop 0.05% Nasal [Flonase Nasal [place]] 50 mg INH DAILY 08/24/14 Furosemide [Lasix] 40 mg PO DAILY 08/24/14 Lisinopril 20 mg PO BID 08/24/14 Metoprolol Succinate [Toprol Xl] 100 mg PO DAILY 08/24/14 Morphine Sulfate [Morphine Sulfate ER] 30 mg PO BID 08/24/14 traZODone HCL [Desyrel] 50 mg PO BEDTIME 08/24/14 Aspirin [Aspirin Childrens] 81 mg PO DAILY 06/11/19 Atorvastatin Calcium [Lipitor] 40 mg PO DAILY 06/11/19 Calcium Citrate-Vitamin D [Citracal + D3 Maximum 315-250 mg-Unit] 1 tab PO DAILY 06/11/19 Cetirizine HCl [Zyrtec] 10 mg PO BEDTIME 06/11/19 Coenzyme Q10 (Ubidecarenone) [Coq-10] 200 mg PO BID 06/11/19 Multiple Vitamins W/ Minerals [One Daily For Women] 1 tab PO DAILY 06/11/19 Potassium Chloride [K-Tab] 20 meq PO DAILY 06/11/19 Ketorolac Tromethamine [Toradol Tabs] 10 mg PO Q6HR PRN #20 tab 06/13/19 [place]-3 Fatty Acids [Fish Oil] 1 unit PO DAILY 11/08/19 Transfer to Outside Facility - Transfer Information Decision to Transfer Date: 01/31/20 Decision to Transfer Time: 21:32 Reason for Transfer: specialized care not available - trauma center, interventional radiology Accepting Provider:: Dr. Rodriguez Accepting Facility: [facility]
[2020-01-31] MEDS: HYDROcodone 10MG/APAP 325MG 1 EA TAB PO ONE (18:14)
--- NOTE | 2020-01-31 18:28 | RAD ---
EXAM DESCRIPTION: Pelvis,2 or More Views CLINICAL HISTORY: 79 years Female ground level fall, Right hip pain, groin pain COMPARISON: None TECHNIQUE: AP views of the pelvis are obtained with the hips in neutral and frog-leg positions. FINDINGS: OSSEOUS: There is a comminuted fracture involving the right body and medial aspect of the right superior pubic ramus. There is also an age-indeterminate overlapping fracture of the right inferior pubic ramus. There is no evidence of subluxation or dislocation. There are postoperative changes of posterior lumbar decompression and fusion at L5-S2 with bilateral pedicle screws and interconnecting rods. The hip joint spaces are symmetrically mildly narrowed with mild marginal osteophytosis indicating primary osteoarthritis. There are degenerative changes in the hip joints, right greater than left with the right SI joint appearing more narrow and associated with eburnation. The visualized sacral foraminal lines appear intact There is no evidence of degenerative osteophytosis or sclerosis. There is no evidence of marginal erosive changes to suggest an inflammatory arthritis. SOFT TISSUE: There is no significant soft tissue swelling or mass. No evidence of significant soft tissue calcifications. No radiopaque foreign bodies. No evidence of hip joint effusions. IMPRESSION: There is a comminuted fracture involving the right pubic body and medial aspect of the right superior pubic ramus. There is also an age-indeterminate overlapping fracture of the right inferior pubic ramus. Remainder of findings as described above. Electronically signed by: Saadia Gilbert MD 01/31/2020 6:26 PM CDT
--- NOTE | 2020-01-31 18:32 | RAD ---
EXAM DESCRIPTION: Chest,1 View CLINICAL HISTORY: 79 years Female ground-level fall COMPARISON: Portable chest dated 11/25/2019 TECHNIQUE: Portable AP view of the chest is obtained. FINDINGS IN THE CHEST: Heart: Allowing for magnification factors related to AP portable technique and body habitus, the heart is normal in size and configuration status post coronary artery bypass surgery. There is annular calcification of the mitral valve. Vasculature: [There is mild tortuosity and atherosclerosis of the aorta.] There is no evidence of aortic aneurysm or acute findings. The pulmonary vascularity is normal. Mediastinum: No evidence of mass or adenopathy. Lungs: There is diffuse interstitial prominence. There is no focal consolidation in the lungs. A round mass projects over the lateral aspect of the right hemidiaphragm was not present on the previous study Pleura: There are no pleural effusions. There are no pneumothoraces. Osseous structures: No evidence of acute fracture, osteolytic lesions or osteoblastic lesions. There are sternal wires consistent with previous sternotomy incision. Tubes and catheters: Epidural leads course along the distribution of the thoracic spine, terminating at the level of T5. Chest wall: Unremarkable. Visualized Abdomen: Unremarkable. IMPRESSION: Nonspecific interstitial prominence may be acute or chronic as from interstitial edema or an acute lower respiratory tract viral illness versus fibrosis. There is no evidence of acute consolidative pneumonia. Mass projecting over the right hemidiaphragm laterally has the appearance of an eventration but was not previously demonstrated. Recommend CT chest if clinically indicated. Remainder of findings as described above. Electronically signed by: Saadia Gilbert MD 01/31/2020 6:30 PM CDT
--- NOTE | 2020-01-31 18:33 | RAD ---
EXAM DESCRIPTION: Elbow,Right 2 Views CLINICAL HISTORY: 79 years Female fall, R elbow pain COMPARISON: None TECHNIQUE: AP and lateral views of the right elbow are obtained FINDINGS: OSSEOUS: There is no evidence of acute fracture or osteolytic/osteoblastic lesions. There is no evidence of subluxation or dislocation. The joint spaces are preserved. There is no evidence of degenerative osteophytosis or sclerosis. There is no evidence of marginal erosive changes to suggest an inflammatory arthritis. SOFT TISSUE: There is no significant soft tissue swelling or mass. No evidence of significant soft tissue calcifications. No radiopaque foreign bodies. There is no evidence of an elbow joint effusion. IMPRESSION: No acute osseous abnormalities. Remainder of findings as described above. Electronically signed by: Saadia Gilbert MD 01/31/2020 6:31 PM CDT
[2020-01-31] MEDS: SODIUM CHLORIDE 0.9% 500ML 500 ML IVS ONE (19:32)
--- NOTE | 2020-01-31 20:53 | CT ---
EXAM DESCRIPTION: Abdoment/Pelvis w/o Contrast CLINICAL HISTORY: 79 years Female ground-level fall, pelvic fracture, R groin pain COMPARISON: 01/31/2020. 06/11/2019. TECHNIQUE: Multiple contiguous axial CT slices were taken from the diaphragms to the pubic symphysis without intravenous contrast. This exam was performed according to our departmental dose-optimization program, which includes automated exposure control, adjustment of the mA and/or kV according to patient size and/or use of iterative reconstruction technique. FINDINGS: Acute fracture deformity of the right obturator ring, with the pubic ramus fracture fragments projecting medially into the pelvis. There is adjacent hyperdense (50 Hounsfield units) pelvic sidewall hematoma spanning approximately 12.1 x 6.2 cm in axial dimension and approximately 5 cm in craniocaudal dimension. The bladder is deviated to the right. No additional fracture is seen. Specifically no discernible acetabular fracture or sacral fracture. L5-S1 fusion hardware noted. Degenerative L4-5 anterolisthesis. Bilateral sacroiliac arthrosis. The lung bases are clear. Visualized cardiomediastinal structures are normal. No focal hepatic lesions. Gallbladder surgically absent. Bile ducts, pancreas, spleen and adrenals are normal. Bilateral renal cortical thinning with subcentimeter right simple renal cyst. Ureters are normal. Bladder is deviated to the right. There is no evidence of acute bladder injury. Uterus surgically absent. No suspicious adnexal masses. The small bowel is normal. The appendix is nonvisualized. The large bowel is normal, status post partial colectomy.. No ascites, pneumatosis or pneumoperitoneum. No lymphadenopathy. The aorta and IVC are normal. Low anterior midline fat-containing ventral hernia. IMPRESSION: 1. Right obturator ring fracture exhibiting adjacent extraperitoneal hemorrhage of the pelvic sidewall. Recommend consideration for endovascular treatment hemorrhage. No evidence of acute bladder injury, although if there is ongoing clinical concern, CT cystogram could be performed. Electronically signed by: Vicente Lira MD 01/31/2020 8:51 PM CDT
--- NOTE | 2020-01-31 20:57 | CT ---
CT CHEST WITHOUT IV CONTRAST HISTORY: Trauma. COMPARISON: None. TECHNIQUE: CT scan of the chest was performed with IV contrast. This exam was performed according to our departmental dose-optimization program, which includes automated exposure control, adjustment of the mA and/or kV according to patient size and/or use of iterative reconstruction technique. FINDINGS: The heart size is normal without pericardial effusion. No mediastinal hematoma is seen. No pulmonary contusion, pleural effusion, or pneumothorax. There are areas of scarring particularly in the lingula. The thoracic aorta is normal caliber. There is an age-indeterminate compression fracture of T9 and T12. There are mildly displaced fractures of the left posterior ninth, 10th, 11th ribs. IMPRESSION: 1. Age-indeterminate T9 and T12 compression fractures. Correlate for point tenderness and consider MRI for complete evaluation, if clinically warranted. 2. Mildly displaced fractures of the left posterior ninth, 10th, 11th ribs. Electronically signed by: Jamil Bowden MD 01/31/2020 8:55 PM CDT
[2020-01-31 21:03] VITALS: BP 146/63; O2SAT 98
[2020-01-31] MEDS: MORPHINE SULFATE INJ 10 MG/ML VIAL IV ONE (21:43)
[2020-01-31] MEDS: ceFAZolin SODIUM 2 GM in SODIUM CHLORIDE 0.9% 100ML 100 ML IVPB ONE (21:43)
[2020-01-31 22:22] VITALS: TEMP 97.4
== END 2020-01-31 22:00 | disposition short-term general hospital (02) ==
LOC: ER 17:21
DX: S32.82XA Multiple fractures of pelvis without disruption of pelvic ring, initial encounter for closed fracture (principal); S30.0XXA Contusion of lower back and pelvis, initial encounter; S09.90XA Unspecified injury of head, initial encounter; R42 Dizziness and giddiness; I11.0 Hypertensive heart disease with heart failure; I50.9 Heart failure, unspecified; Z95.1 Presence of aortocoronary bypass graft; Z91.81 History of falling; W19.XXXA Unspecified fall, initial encounter; Y92.000 Kitchen of unspecified non-institutional (private) residence as the place of occurrence of the external cause
CPT/HCPCS: 36415; 71045; 71250; 72190; 73070; 74176; 80048; 81001; 83880; 85025; 87077; 87086; 87186; 87635; 93005; J0690; J2270; J7040; J7050

== ENCOUNTER → 2020-02-12 | Outpatient (CLI) | payer MEDICARE, OTHER | LOC: GMAE 14:50 | PROVIDERS: ATTEND Family Medicine | DX: D50.9 Iron deficiency anemia, unspecified (principal); N39.0 Urinary tract infection, site not specified; D61.82 Myelophthisis ==

== ENCOUNTER → 2020-02-18 | Outpatient (CLI) | payer MEDICARE, OTHER ==
--- NOTE | 2020-02-18 13:06 | RAD ---
EXAM DESCRIPTION: Pelvis CLINICAL HISTORY: HIP PAIN RIGHT AND LEFT COMPARISON: January 31, 2020 IMPRESSION: Single AP view of the pelvis shows diffuse osteopenia the osseous structures. Comminuted displaced fracture of the right medial superior pubic ramus with nondisplaced fracture of the inferior pubic ramus. Moderate degenerative changes of the pubic symphysis are again seen. Extensive postsurgical changes to the lower lumbar spine are seen. Moderate osteoarthritic changes of the bilateral sacroiliac joints. Right generator pack for dorsal column stimulator is seen. Joint space narrowing with sclerotic changes to the superior lateral acetabulum are seen in both hips compatible with mild to moderate osteoarthritic changes. Electronically signed by: Kristofer Tran MD 02/18/2020 1:04 PM CDT
--- NOTE | 2020-02-18 13:09 | RAD ---
EXAM DESCRIPTION: Wrist,Left 3 Views CLINICAL HISTORY: FRACTURE COMPARISON: July 29, 2019 Findings/impression: 3 views of the left wrist again demonstrate fracture of the distal radius with mild impaction of the distal fracture fragment and dorsal angulation. Fracture appears healed compared to previous exam. Bohler styloid avulsion fracture is seen with nonunion of the fracture fragments versus new ulnar styloid avulsion fracture with mild displacement of fracture fragments. Severe osteoarthritic changes of the first carpometacarpal joint and STT joints. The osseous structures are diffusely osteopenic. Mild subluxation of the first metacarpal is again seen. Electronically signed by: Kristofer Tran MD 02/18/2020 1:07 PM CDT
== END ==
LOC: RAD 09:52
PROVIDERS: ATTEND Orthopaedic Surgery
DX: S52.502D Unspecified fracture of the lower end of left radius, subsequent encounter for closed fracture with routine healing (principal); S52.612K Displaced fracture of left ulna styloid process, subsequent encounter for closed fracture with nonunion; S32.511A Fracture of superior rim of right pubis, initial encounter for closed fracture; S32.591A Other specified fracture of right pubis, initial encounter for closed fracture; M18.9 Osteoarthritis of first carpometacarpal joint, unspecified; S63.062A Subluxation of metacarpal (bone), proximal end of left hand, initial encounter; M85.9 Disorder of bone density and structure, unspecified; M47.898 Other spondylosis, sacral and sacrococcygeal region; M25.851 Other specified joint disorders, right hip; M25.852 Other specified joint disorders, left hip; Z98.890 Other specified postprocedural states

== ENCOUNTER → 2020-03-30 | Outpatient (CLI) | payer MEDICARE, OTHER ==
--- NOTE | 2020-03-30 15:41 | RAD ---
4 radiographs pelvis Indication: CLOSED FRACTURE PELVIS, MULTIPLE PUBIC RAMI STABLE Comparison: CT January 31, 2020 Findings: Right parasymphyseal pubic bone fracture noted with extension into the medial margins of the superior pubic ramus and the inferior pubic ramus. Mild periostitis/callus formation noted, however the fractures remain largely ununited. Fracture alignment is stable. Stable degenerative changes of the pelvis noted. Osteopenia. If this is a new finding, DEXA scan recommended as well as evaluation for possible osteoporosis treatment. Electronically signed by: Salazar Arriaza MD 03/30/2020 3:39 PM CDT
== END ==
LOC: RAD 09:30
PROVIDERS: ATTEND Orthopaedic Surgery
DX: S32.810D Multiple fractures of pelvis with stable disruption of pelvic ring, subsequent encounter for fracture with routine healing (principal); M85.9 Disorder of bone density and structure, unspecified; M84.859 Other disorders of continuity of bone, unspecified pelvic region and thigh

== ENCOUNTER → 2020-05-21 | Outpatient (CLI) | payer MEDICARE, OTHER | LOC: GMAE 14:27 | PROVIDERS: ATTEND Family Medicine | DX: I10 Essential (primary) hypertension (principal) ==